=== PATIENT | male | born 1955 | race Caucasian/White ===

== ENCOUNTER 2021-10-20 14:37 | Inpatient (IN) ==
--- NOTE | 2021-10-20 14:54 | Emergency Department Note ---
Impression & Plan Acute left-sided weakness, Anemia ED Provider Note NAME: FREDDY LIU AGE: 66 SEX: M : 1955 ARRIVES VIA: Walk-In INFORMANT: Patient, the patient's family member ED PROVIDER(S): Lisandro Little DO CHIEF COMPLAINT: Stroke alert HPI: The patient is a 66-year-old male who was made a stroke alert from triage who presented to the emergency department with left-sided heaviness. The patient presented to the emergency department with his family member. He states he was in our facility yesterday for a blood transfusion. He received a blood transfusion for anemia. He states he did well with that and was able to go patricia e. He states he felt less tired. He states today when he was getting ready to have his morning coffee around 830 he went to stand up and felt very dizzy. He fell to the ground. He states it was not a syncopal episode but he states it was more of a near syncopal episode. He did not strike his head. Ever since that episode he states he has been having left-sided weakness. The patient denies having any chest pain or difficulty breathing. The patient denies having any hip pain or back pain. The patient denies having any fevers. He is not been seen by his family doctor today. Patient also states that the left side of his face has tingling in it. ROS: See above HPI for pertinent positives & negatives. A total of 10 systems reviewed and were otherwise negative. PAST MEDICAL HISTORY: See Below PAST SURGICAL HISTORY: See Below FAMILY HISTORY: See Below SOCIAL HISTORY: See Below HOME MEDICATIONS: See Below ALLERGIES: See Below VITALS: See Below PHYSICAL EXAMINATION: GENERAL: Patient is awake alert in no acute distress patient is resting comfortably and showing no signs of anxiety EYES: The conjunctivae are clear. The pupils are round and reactive. EARS, NOSE, MOUTH AND THROAT: The nose is without any evidence of any deformity. Mucous membranes are moist. Tongue is midline. NECK: The neck is nontender and supple. RESPIRATORY: Normal respiratory effort is noted there is no evidence of wheezing rhonchi or rales CARDIOVASCULAR: Regular rate and rhythm noted there no murmurs rubs or gallops normal S1 normal S2. GASTROINTESTINAL: The abdomen is soft. Abdomen is nontender. MUSCULOSKELETAL/EXTREMITIES: There is no evidence of gross deformity full range of motion is noted in the hips and shoulders. SKIN: There is no obvious evidence of any rash. There are no petechiae, pallor or cyanosis noted. NEUROLOGIC: Patient is awake alert and oriented x3. There is no facial droop. 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 The patient is able to hold each leg off the bed for greater than 5 seconds but he does start to have some tremors in the left leg where the right leg he is able to hold without difficulty. MEDICAL DECISION MAKING: The patient is a 66-year-old male who presented to the emergency department through triage for left-sided weakness. The weakness began this morning. I nitially he was made a stroke alert but he was found to be outside the window for thrombolytics. The patient does not appear to have signs of large vessel occlusion on physical exam or by radiographic studies. I discussed the patient's laboratory and radiographic studies with him. He does have a history of metastatic prostate cancer. He does not have any back pain but he continues to have left-sided weakness especially in the leg greater than arm. The patient's condition was discussed with the on-call [facility] hospitalist group. They have agreed to evaluate the patient in the emergency department for further management and disposition. Likely patient may require further neuroimaging. Triage Nursing notes reviewed. Prior medical records reviewed Vital Signs: reviewed and remarkable for no significant abnormalities Differential diagnosis: Infection, dehydration, metabolic abnormality, hypo/hyperglycemia, electrolyte disturbance, anemia, hypoxia, cardiac sources, intracerebral event, toxicologic, neurologic, as well as other pathologies. ER treatment provided: See below Diagnostics interpreted by me: ECG: EKG was obtained in the emergency department. My interpretation is normal sinus rhythm at 79 bpm. First-degree AV block was noted. Nonspecific ST seg ment abnormalities were noted in the low lateral leads. No previous tracing was available. Cardiac Monitoring: An order was placed for continuous cardiac monitoring. The monitor shows a rate of 68 bpm with sinus rhythm. Laboratory studies: As stated above and show below. Imaging studies: See below Consultation(s): I discussed this case with the on-call [facility] hospitalist group. Past Med/Surg History Medical History (Updated 10/20/21 @ 21:41 by Lisandro Little DO) Anemia History of transcatheter aortic valve replacement (TAVR) HTN (hypertension) Prostate cancer metastatic to bone Surgical History History of heart valve replacement 2010 History of heart valve replacement 2018 History of heart valve replacement 2008 History of prostatectomy 2009 Family History Other Colorectal cancer Kidney disease Prostate cancer Social History Smoking Status: Never smoker Hx Alcohol Use: Yes Alcohol type: beer Hx Substance Use: No Preferred Language: Polish Communication Ability: Effective Visual Impairment: No Limitations Hearing Ability: Hard of Hearing 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 Beliefs That Will Affect Care: None Current Living Situation: Family Feels Safe at Home: Yes Allergies Allergies Allergy/AdvReac Type Severity Reaction Status Date / Time No Known Allergies Allergy Unverified 10/20/21 16:39 Home Meds Home Medications Medication Instructions Recorded Confirmed atenolol 25 mg tablet 25 mg PO DAILY 10/19/21 10/20/21 oxycodone-acetaminophen 10 mg-325 1 tab PO Q4H PRN 10/19/21 10/20/21 mg tablet (Percocet) aspirin 81 mg tablet,delayed 81 mg PO DAILY 10/20/21 10/20/21 release calcium carbonate 600 mg-vitamin 1 tab PO BID 10/20/21 10/20/21 D3 10 mcg (400 unit) tablet (Calcium 600 + D(3)) diclofenac sodium 1 % topical gel 2 g TOPICAL BID PRN 10/20/21 10/20/21 (Voltaren Arthritis Pain) methylphenidate HCl 10 mg tablet 10 mg PO DAILY 10/20/21 10/20/21 mirtazapine 30 mg tablet 15 mg PO HS 10/20/21 10/20/21 morphine 30 mg tablet,extended 30 mg PO BID 10/20/21 10/20/21 release naloxegol 25 mg tablet (Movantik) 25 mg PO DAILY 10/20/21 10/20/21 sennosides 8.6 mg tablet (Senokot) 8.6 mg PO DAILY 10/20/21 10/20/21 Results & Data (ED) Vital Signs Vital Signs - 24 hr 10/20/21 14:37 10/20/21 14:41 10/20/21 14:52 Temperature 36.5 C Temperature Source Temporal Artery Scan Pulse Rate 79 Pulse Rate [Apical] 72 Pulse Rate from SpO2 Sensor Respiratory Rate 18 16 Respiratory Effort / Characteristics Non-Labored Spontaneous Non-Labored Respiratory Depth Normal Normal Respiratory Pattern Regular Blood Pressure 122/79 Blood Pressure [Right Arm] 137/77 Blood Pressure Mean 93 Blood Pressure Mean [Right Arm] 97 Blood Pressure Position [Right Arm] Sitting Pulse Oximetry 97 96 95 Oxygen Delivery Method Room Air Room Air Room Air Sepsis Recent Fever Within 48 Hours No Sepsis New/Unexplained Change in Mental Status No Sepsis Action Taken by Nursing No Action Required 10/20/21 15:17 10/20/21 15:30 10/20/21 15:45 Temperature Temperature Source Pulse Rate 73 69 75 Pulse Rate [Apical] Pulse Rate from SpO2 Sensor Respiratory Rate 20 20 18 Respiratory Effort / Characteristics Respiratory Depth Respiratory Pattern Blood Pressure 137/77 124/70 131/78 Blood Pressure [Right Arm] Blood Pressure Mean 97 88 95 Blood Pressure Mean [Right Arm] Blood Pressure Position [Right Arm] Pulse Oximetry 96 99 97 Oxygen Delivery Method Room Air Room Air Room Air Sepsis Recent Fever Within 48 Hours Sepsis New/Unexplained Change in Mental Status Sepsis Action Taken by Nursing 10/20/21 16:00 10/20/21 16:39 10/20/21 17:57 Temperature Temperature Source Pulse Rate 70 Pulse Rate [Apical] 68 64 Pulse Rate from SpO2 Sensor 69 Respiratory Rate 17 16 16 Respiratory Effort / Characteristics Non-Labored Spontaneous Non-Labored Spontaneous Respiratory Depth Normal Normal Respiratory Pattern Regular Regular Blood Pressure 124/87 Blood Pressure [Right Arm] 112/64 114/63 Blood Pressure Mean 99 Blood Pressure Mean [Right Arm] 80 80 Blood Pressure Position [Right Arm] Lying Lying Pulse Oximetry 97 95 98 Oxygen Delivery Method Room Air Room Air Sepsis Recent Fever Within 48 Hours Sepsis New/Unexplained Change in Mental Status Sepsis Action Taken by Long-Term Medications Current Medication List: was personally reviewed by me Laboratory Data Attestation: I reviewed the patient's lab results. Result diagrams: 10/20/21 14:53 10/20/21 14:53 Lab Results 10/20/21 10/20/21 10/20/21 Range/Units 14:49 14:53 14:53 WBC 4.46 L (4.8-10.8) K/uL RBC 2.80 L (4.7-6.1) M/uL Hgb 8.1 L (14.0-18.0) g/dL POC Hgb (14.0-18.0) g/dl Hct 26.0 L (42-52) % POC Hct (42-52) % MCV 92.9 (80-100) fL MCH 28.9 (25-34) pg MCHC 31.2 L (32-36) g/dL RDW Std Deviation 66.7 H (36.4-46.3) fL RDW Coeff of Marysol 19.8 H (11.5-14.5) % Plt Count 200 (130-400) K/uL MPV 9.9 (7.4-10.4) fL Immature Gran % (Auto) 9.6 % Neut % (Auto) 55.9 % Lymph % (Auto) 16.4 % Arthur % (Auto) 15.0 % Eos % (Auto) 2.2 % Baso % (Auto) 0.9 % Neut # (Auto) 2.49 (1.4-6.5) K/uL Lymph # (Auto) 0.73 L (1.2-3.4) K/uL Arthur # (Auto) 0.67 H (0.11-0.59) K/uL Eos # (Auto) 0.10 (0-0.5) K/uL Baso # (Auto) 0.04 (0-0.2) K/uL Immature Gran # (Auto) 0.43 H (0.00-0.02) K/uL Absolute Nucleated RBC 0.29 H (0-0) K/uL Nucleated RBC % (auto) 6.4 % Polychromasia 1+ Anisocytosis Present Tear Drop Cells 1+ PT 12.0 (9.0-12.0) Seconds INR 1.1 (0.9-1.1) APTT 24.3 (21.0-31.0) Seconds PTT Ratio 0.9 POC Sodium (135-144) mmol/L Sodium (136-145) mmol/L POC Potassium (3.3-5.0) mmol/L Potassium (3.5-5.1) mmol/L POC Chloride (101-112) mmol/L Chloride (98-107) mmol/L Carbon Dioxide (21-32) mmol/L POC Total CO2 (24-31) mmol/L Anion Gap (3-11) POC Anion Gap (16-25) mmol/L POC BUN (7-18) mg/dl BUN (6-23) mg/dl Creatinine (0.6-1.4) mg/dl POC Creatinine (0.6-1.3) mg/dl Est Cr Clr Drug Dosing ml/min Est GFR ( Amer) ml/min Est GFR (Non-Af Amer) ml/min BUN/Creatinine Ratio (10-20) Glucose (70-99(Fasting)) mg/dl POC Glucose 109 H (70-99) mg/dl POC Glucose (other) (70-99) mg/dl Calcium (8.5-10.1) mg/dl POC Ioniz Calcium Kitty (1.12-1.32) mmol/l Magnesium (1.7-2.4) mg/dl Total Bilirubin (0.2-1.0) mg/dl AST (13-39) U/L ALT (7-52) U/L Alkaline Phosphatase (34-104) U/L Troponin I High Sens (0-20) pg/ml Total Protein (6.0-8.3) gm/dl Albumin (3.4-5.0) gm/dl Globulin (2.5-4.0) gm/dl Albumin/Globulin Ratio (0.9-2) SARS-CoV-2, RNA, NAAT (NEGATIVE) 10/20/21 10/20/21 10/20/21 Range/Units 14:53 14:57 16:01 WBC (4.8-10.8) K/uL RBC (4.7-6.1) M/uL Hgb (14.0-18.0) g/dL POC Hgb 8.2 L (14.0-18.0) g/dl Hct (42-52) % POC Hct 24 L (42-52) % MCV (80-100) fL MCH (25-34) pg MCHC (32-36) g/dL RDW Std Deviation (36.4-46.3) fL RDW Coeff of Marysol (11.5-14.5) % Plt Count (130-400) K/uL MPV (7.4-10.4) fL Immature Gran % (Auto) % Neut % (Auto) % Lymph % (Auto) % Arthur % (Auto) % Eos % (Auto) % Baso % (Auto) % Neut # (Auto) (1.4-6.5) K/uL Lymph # (Auto) (1.2-3.4) K/uL Arthur # (Auto) (0.11-0.59) K/uL Eos # (Auto) (0-0.5) K/uL Baso # (Auto) (0-0.2) K/uL Immature Gran # (Auto) (0.00-0.02) K/uL Absolute Nucleated RBC (0-0) K/uL Nucleated RBC % (auto) % Polychromasia Anisocytosis Tear Drop Cells PT (9.0-12.0) Seconds INR (0.9-1.1) APTT (21.0-31.0) Seconds PTT Ratio POC Sodium 138 (135-144) mmol/L Sodium 137 (136-145) mmol/L POC Potassium 4.3 (3.3-5.0) mmol/L Potassium 4.2 (3.5-5.1) mmol/L POC Chloride 105 (101-112) mmol/L Chloride 104 (98-107) mmol/L Carbon Dioxide 26 (21-32) mmol/L POC Total CO2 22 L (24-31) mmol/L Anion Gap 7 (3-11) POC Anion Gap 17.0 (16-25) mmol/L POC BUN 22 H (7-18) mg/dl BUN 25 H (6-23) mg/dl Creatinine 0.88 (0.6-1.4) mg/dl POC Creatinine 0.8 (0.6-1.3) mg/dl Est Cr Clr Drug Dosing 93.3 ml/min Est GFR ( Amer) 103.7 ml/min Est GFR (Non-Af Amer) 89.5 ml/min BUN/Creatinine Ratio 28.4 H (10-20) Glucose 109 H (70-99(Fasting)) mg/dl POC Glucose (70-99) mg/dl POC Glucose (other) 112 H (70-99) mg/dl Calcium 7.5 L (8.5-10.1) mg/dl POC Ioniz Calcium Kitty 0.98 L (1.12-1.32) mmol/l Magnesium 2.4 (1.7-2.4) mg/dl Total Bilirubin 0.5 (0.2-1.0) mg/dl AST 56 H (13-39) U/L ALT 7 (7-52) U/L Alkaline Phosphatase 460 H (34-104) U/L Troponin I High Sens 9.5 (0-20) pg/ml Total Protein 7.1 (6.0-8.3) gm/dl Albumin 4.3 (3.4-5.0) gm/dl Globulin 2.8 (2.5-4.0) gm/dl Albumin/Globulin Ratio 1.5 (0.9-2) SARS-CoV-2, RNA, NAAT NEGATIVE (NEGATIVE) Administered Medications Discontinued Medications Aspirin (Aspirin 81 Mg Chew) 324 mg PO NOW STA Stop: 10/20/21 18:37 Last Admin: 10/20/21 19:05 Dose: 324 mg Documented by: [id number] Calcium Gluconate 1,000 mg/ (Dextrose) 60 mls @ 240 mls/hr IV NOW ONE Stop: 10/20/21 20:12 Last Infusion: 10/20/21 21:03 Dose: 0 mls/hr Documented by: [id number] Admin: 10/20/21 20:44 Dose: 240 mls/hr Documented by: [id number] Ioversol (Optiray 320 125ml) 120 ml IV ONCE ONE Stop: 10/20/21 15:09 Last Admin: 10/20/21 15:08 Dose: 120 ml Documented by: [id number] Imaging Data Radiologist's Impression: Chest X-Ray 10/20/21 14:52 XR chest 1V portable HISTORY: 66 years-old Male Stroke Like Symptoms acute strokelike symptoms COMPARISON: CT head and cervical spine studies of same day TECHNIQUE: AP view of the chest FINDINGS: The cardiac silhouette is enlarged. Prior median sternotomy. No pneumothorax, pleural effusion, airspace consolidation or overt pulmonary edema. Extensive osteoblastic skeletal metastasis. Degenerative changes of the shoulders and spine. IMPRESSION: 1. Cardiomegaly without acute process. 2. Extensive osteoblastic skeletal metastasis. ACT 112: Negative or not required by law. The above report was generated using voice recognition software. It may contain grammatical, syntax or spelling errors. Electronically signed by: Vitor Holt M.D. 10/20/2021 3:[address] 10/20/21 14:[address] OF THE BRAIN; CT ANGIOGRAM OF THE BRAIN; CT ANGIOGRAM OF THE NECK CLINICAL HISTORY: Strokelike symptoms. COMPARISON STUDY: No priors. TECHNIQUE: Unenhanced axial CT scan of the brain is performed. Subsequently, following the IV administration of 119 of Optiray 320, CT angiogram of the head and neck was performed from the aortic arch to the vertex. Images are reviewed in the axial, sagittal, and coronal planes. 3-D MIPS images are created and assessed. IV contrast was administered without complication. All measurements were calculated based on NASCET criteria. A dose lowering technique was utilized adhering to the principles of ALARA. FINDINGS: Brain parenchyma: A chronic lacunar infarct is noted in the left basal ganglia. There is no hemorrhage, mass effect, or evidence of acute territorial ischemia by CT criteria. There is no evidence of enhancing mass lesion on the angiogram phase images. The ventricles, sulci, and cisterns are normal in configuration. Megacisterna magna is incidentally noted. Pierce-white matter differentiation is preserved. No extra-axial fluid collection is seen. Thoracic aorta: Visualized portions of the thoracic aorta are normal in caliber. The aortic arch demonstrates standard 3-vessel anatomy. Right carotid arterial system: The right common carotid artery is widely patent, as are the right internal and external carotid arteries. Left carotid arterial system: The left common carotid artery is widely patent, as are the left internal and external carotid arteries. Atherosclerotic plaque is noted in the carotid bulb.. Vertebral arteries: Widely patent bilaterally and codominant. Subclavian arteries: Widely patent bilaterally. Intracranial vasculature: There is atherosclerotic calcification of the cavernous carotid arteries. The internal carotid arteries are patent at the skull base, as are the anterior and middle cerebral arteries bilaterally. The vertebrobasilar system and posterior cerebral arteries are widely patent. The vertebral arteries are codominant. There is no aneurysm, high-grade stenosis, or focal vessel cut off seen throughout the intracranial circulation. Jugular veins: Patent bilaterally. Dural sinuses: Patent. Lung apices: Partially visualized upper lobe lung parenchyma appears clear. Soft tissues: The visualized pharyngeal soft tissues are normal in appearance noting angiographic phase technique. The oropharyngeal airway appears widely patent. The salivary and thyroid glands are normal in appearance. No cervical lymphadenopathy is seen. Skeletal structures: The calvarium appears intact. The cervical spine is within normal limits. There is evidence of multifocal osteoblastic metastatic disease, greatest in the thoracic spine, upper ribs, and sternum. Midline sternotomy wires are noted. Orbits: The bony orbits are intact. Orbital contents are normal as visualized noting a right ocular lens implant. Sinuses and mastoids: There is mild mucosal thickening and retention cysts in the maxillary antra. Retention cysts measure up to 3 cm. Mild mucosal thickening is also seen within the sphenoid and ethmoid sinuses. There are trace mastoid effusions0. IMPRESSION: 1. There is no hemorrhage, mass effect, or evidence of acute territorial ischemia by CT criteria. 2. Unremarkable CT angiogram of the brain. 3. Unremarkable CT angiogram of the neck. 4. 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 Correlate with the patient's oncological history. ACT 112: Negative or not required by law. Electronically signed by: Leo Perry M.D. 10/20/2021 3:35 PM Head CTA 10/20/21 14:[address] OF THE BRAIN; CT ANGIOGRAM OF THE BRAIN; CT ANGIOGRAM OF THE NECK CLINICAL HISTORY: Strokelike symptoms. COMPARISON STUDY: No priors. TECHNIQUE: Unenhanced axial CT scan of the brain is performed. Subsequently, following the IV administration of 119 of Optiray 320, CT angiogram of the head and neck was performed from the aortic arch to the vertex. Images are reviewed in the axial, sagittal, and coronal planes. 3-D MIPS images are created and assessed. IV contrast was administered without complication. All measurements were calculated based on NASCET criteria. A dose lowering technique was utilized adhering to the principles of ALARA. FINDINGS: Brain parenchyma: A chronic lacunar infarct is noted in the left basal ganglia. There is no hemorrhage, mass effect, or evidence of acute territorial ischemia by CT criteria. There is no evidence of enhancing mass lesion on the angiogram phase images. The ventricles, sulci, and cisterns are normal in configuration. Megacisterna magna is incidentally noted. Pierce-white matter differentiation is preserved. No extra-axial fluid collection is seen. Thoracic aorta: Visualized portions of the thoracic aorta are normal in caliber. The aortic arch demonstrates standard 3-vessel anatomy. Right carotid arterial system: The right common carotid artery is widely patent, as are the right internal and external carotid arteries. Left carotid arterial system: The left common carotid artery is widely patent, as are the left internal and external carotid arteries. Atherosclerotic plaque is noted in the carotid bulb.. Vertebral arteries: Widely patent bilaterally and codominant. Subclavian arteries: Widely patent bilaterally. Intracranial vasculature: There is atherosclerotic calcification of the cavernous carotid arteries. The internal carotid arteries are patent at the skull base, as are the anterior and middle cerebral arteries bilaterally. The vertebrobasilar system and posterior cerebral arteries are widely patent. The vertebral arteries are codominant. There is no aneurysm, high-grade stenosis, or focal vessel cut off seen throughout the intracranial circulation. Jugular veins: Patent bilaterally. Dural sinuses: Patent. Lung apices: Partially visualized upper lobe lung parenchyma appears clear. Soft tissues: The visualized pharyngeal soft tissues are normal in appearance noting angiographic phase technique. The oropharyngeal airway appears widely patent. The salivary and thyroid glands are normal in appearance. No cervical lymphadenopathy is seen. Skeletal structures: The calvarium appears intact. The cervical spine is within normal limits. There is evidence of multifocal osteoblastic metastatic disease, greatest in the thoracic spine, upper ribs, and sternum. Midline sternotomy wires are noted. Orbits: The bony orbits are intact. Orbital contents are normal as visualized noting a right ocular lens implant. Sinuses and mastoids: There is mild mucosal thickening and retention cysts in the maxillary antra. Retention cysts measure up to 3 cm. Mild mucosal thickening is also seen within the sphenoid and ethmoid sinuses. There are trace mastoid effusions0. IMPRESSION: 1. There is no hemorrhage, mass effect, or evidence of acute territorial ischemia by CT criteria. 2. Unremarkable CT angiogram of the brain. 3. Unremarkable CT angiogram of the neck. 4. 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 Correlate with the patient's oncological history. ACT 112: Negative or not required by law. Electronically signed by: Leo Perry M.D. 10/20/2021 3:35 PM Neck CTA 10/20/21 14:[address] OF THE BRAIN; CT ANGIOGRAM OF THE BRAIN; CT ANGIOGRAM OF THE NECK CLINICAL HISTORY: Strokelike symptoms. COMPARISON STUDY: No priors. TECHNIQUE: Unenhanced axial CT scan of the brain is performed. Subsequently, following the IV administration of 119 of Optiray 320, CT angiogram of the head and neck was performed from the aortic arch to the vertex. Images are reviewed in the axial, sagittal, and coronal planes. 3-D MIPS images are created and assessed. IV contrast was administered without complication. All measurements were calculated based on NASCET criteria. A dose lowering technique was utilized adhering to the principles of ALARA. FINDINGS: Brain parenchyma: A chronic lacunar infarct is noted in the left basal ganglia. There is no hemorrhage, mass effect, or evidence of acute territorial ischemia by CT criteria. There is no evidence of enhancing mass lesion on the angiogram phase images. The ventricles, sulci, and cisterns are normal in configuration. Megacisterna magna is incidentally noted. Pierce-white matter differentiation is preserved. No extra-axial fluid collection is seen. Thoracic aorta: Visualized portions of the thoracic aorta are normal in caliber. The aortic arch demonstrates standard 3-vessel anatomy. Right carotid arterial system: The right common carotid artery is widely patent, as are the right internal and external carotid arteries. Left carotid arterial system: The left common carotid artery is widely patent, as are the left internal and external carotid arteries. Atherosclerotic plaque is noted in the carotid bulb.. Vertebral arteries: Widely patent bilaterally and codominant. Subclavian arteries: Widely patent bilaterally. Intracranial vasculature: There is atherosclerotic calcification of the cavernous carotid arteries. The internal carotid arteries are patent at the skull base, as are the anterior and middle cerebral arteries bilaterally. The vertebrobasilar system and posterior cerebral arteries are widely patent. The vertebral arteries are codominant. There is no aneurysm, high-grade stenosis, or focal vessel cut off seen throughout the intracranial circulation. Jugular veins: Patent bilaterally. Dural sinuses: Patent. Lung apices: Partially visualized upper lobe lung parenchyma appears clear. Soft tissues: The visualized pharyngeal soft tissues are normal in appearance noting angiographic phase technique. The oropharyngeal airway appears widely patent. The salivary and thyroid glands are normal in appearance. No cervical lymphadenopathy is seen. Skeletal structures: The calvarium appears intact. The cervical spine is within normal limits. There is evidence of multifocal osteoblastic metastatic disease, greatest in the thoracic spine, upper ribs, and sternum. Midline sternotomy wires are noted. Orbits: The bony orbits are intact. Orbital contents are normal as visualized noting a right ocular lens implant. Sinuses and mastoids: There is mild mucosal thickening and retention cysts in the maxillary antra. Retention cysts measure up to 3 cm. Mild mucosal thickening is also seen within the sphenoid and ethmoid sinuses. There are trace mastoid effusions0. IMPRESSION: 1. There is no hemorrhage, mass effect, or evidence of acute territorial ischemia by CT criteria. 2. Unremarkable CT angiogram of the brain. 3. Unremarkable CT angiogram of the neck. 4. 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 Correlate with the patient's oncological history. ACT 112: Negative or not required by law. Electronically signed by: Leo Perry M.D. 10/20/2021 3:[address] 10/20/21 14:54 CT cervical spine wo con CT DOSE: 1648.81 mGy.cm CLINICAL HISTORY: 66 years-old Male with fall. Acute strokelike symptoms with neck pain COMPARISON: CTA head and neck of same day TECHNIQUE: Multiple axial CT images of the cervical spine were obtained without contrast. A dose lowering technique was utilized adhering to the principles of ALARA. FINDINGS: Multifocal osseous metastatic disease throughout the imaged skeletal structures. No acute pathologic fracture is identified. Possible subacute or ch ronic nondisplaced pathologic fracture involving the medial aspect of the left first rib on image 565. Prior median sternotomy. No pneumothorax. Unremarkable soft tissues. Ca lcifications of the carotid bulbs. Megacisterna magna. Mucosal thickening of the sphenoid sinuses. No acute fracture or subluxation. Multilevel neural foraminal narrowing. Small right mastoid effusion. IMPRESSION: 1. No acute cervical spine fracture or subluxation. 2. Multifocal osteoblastic skeletal metastasis. Metastatic prostate carcinoma would be considered most likely. Oncologic workup is needed. ACT 112: Negative or not required by law. The above report was generated using voice recognition software. It may contain grammatical, syntax or spelling errors. Electronically signed by: Vitor Holt M.D. 10/20/2021 3:33 PM Discharge Plan Visit Data Chief Complaint: Stroke/CVA Symptoms Stated Complaint: REF BY , POSSIBLE STROKE ED Provider: Lisandro Little Discharge Problem: Acute left-sided weakness, Anemia Patient Disposition: Admitted As Inpatient Discharge Instructions Interventions: ED Discharge Assessment Last Done: 10/20/21 19:43
[2021-10-20] MEDS ORDERED: OPTIRAY 320 125ml IV ONE (15:08)
[2021-10-20 15:11] LABS: iSTAT Creatinine 0.8 mg/dl (0.6-1.3); iSTAT Hemoglobin 8.2 g/dl (14.0-18.0); iSTAT Ionized Calcium 0.98 mmol/l (1.12-1.32); iSTAT Potassium 4.3 mmol/L (3.3-5.0)
[2021-10-20 15:22] LABS: Hemoglobin 8.1 g/dL (14.0-18.0); Mean Corpuscular Hemoglobin 28.9 pg (25-34); Mean Corpuscular Hgb Conc 31.2 g/dL (32-36); Mean Corpuscular Volume 92.9 fL (80-100); Mean Platelet Volume 9.9 fL (7.4-10.4); Nucleated RBC # (auto) 0.29 K/uL (0-0); Nucleated RBC % (auto) 6.4 %; Platelet Count 200 K/uL (130-400); RDW Coefficient of Variation 19.8 % (11.5-14.5); RDW Standard Deviation 66.7 fL (36.4-46.3); White Blood Count 4.46 K/uL (4.8-10.8)
[2021-10-20 15:30] LABS: INR 1.1 (0.9-1.1); Partial Thromboplastin Ratio 0.9; Partial Thromboplastin Time 24.3 Seconds (21.0-31.0)
--- NOTE | 2021-10-20 15:35 | CT Scan Report ---
CT cervical spine wo con CT DOSE: 1648.81 mGy.cm CLINICAL HISTORY: 66 years-old Male with fall. Acute strokelike symptoms with neck pain COMPARISON: CTA head and neck of same day TECHNIQUE: Multiple axial CT images of the cervical spine were obtained without contrast. A dose low ering technique was utilized adhering to the principles of ALARA. FINDINGS: Multifocal osseous metastatic disease throughout the imaged skeletal structures. No acute p athologic fracture is identified. Possible subacute or chronic nondisplaced pathologic fracture invol ving the medial aspect of the left first rib on image 565. Prior median sternotomy. No pneumothorax. Unremarkable soft tissues. Calcifications of the carotid bu lbs. Megacisterna magna. Mucosal thickening of the sphenoid sinuses. No acute fracture or subluxation . Multilevel neural foraminal narrowing. Small right mastoid effusion. IMPRESSION: 1. No acute cervical spine fracture or subluxation. 2. Multifocal osteoblastic skeletal metastasis. Metastatic prostate carcinoma would be considered mos t likely. Oncologic workup is needed. ACT 112: Negative or not required by law. The above report was generated using voice recognition software. It may contain grammatical, syntax o r spelling errors. Electronically signed by: Vitor Holt M.D. 10/20/2021 3:33 PM
--- NOTE | 2021-10-20 15:37 | CT Scan Report ---
UNENHANCED CT OF THE BRAIN; CT ANGIOGRAM OF THE BRAIN; CT ANGIOGRAM OF THE NECK CLINICAL HISTORY: Strokelike symptoms. COMPARISON STUDY: No priors. TECHNIQUE: Unenhanced axial CT scan of the brain is performed. Subsequently, following the IV adminis tration of 119 of [address] [address], CT angiogram of the head and neck was performed from the aortic arch t o the vertex. Images are reviewed in the axial, sagittal, and coronal planes. 3-D MIPS images are cre ated and assessed. IV contrast was administered without complication. All measurements were calculate d based on NASCET criteria. A dose lowering technique was utilized adhering to the principles of ALA RA. FINDINGS: Brain parenchyma: A chronic lacunar infarct is noted in the left basal ganglia. There is no hemorrhag e, mass effect, or evidence of acute territorial ischemia by CT criteria. There is no evidence of enh ancing mass lesion on the angiogram phase images. The ventricles, sulci, and cisterns are normal in c onfiguration. Megacisterna magna is incidentally noted. Pierce-white matter differentiation is preserve d. No extra-axial fluid collection is seen. Thoracic aorta: Visualized portions of the thoracic aorta are normal in caliber. The aortic arch demo nstrates standard 3-vessel anatomy. Right carotid arterial system: The right common carotid artery is widely patent, as are the right int ernal and external carotid arteries. Left carotid arterial system: The left common carotid artery is widely patent, as are the left internet technology manager al and external carotid arteries. Atherosclerotic plaque is noted in the carotid bulb.. Vertebral arteries: Widely patent bilaterally and codominant. Subclavian arteries: Widely patent bilaterally. Intracranial vasculature: There is atherosclerotic calcification of the cavernous carotid arteries. T he internal carotid arteries are patent at the skull base, as are the anterior and middle cerebral ar teries bilaterally. The vertebrobasilar system and posterior cerebral arteries are widely patent. The vertebral arteries are codominant. There is no aneurysm, high-grade stenosis, or focal vessel cut of f seen throughout the intracranial circulation. Jugular veins: Patent bilaterally. Dural sinuses: Patent. Lung apices: Partially visualized upper lobe lung parenchyma appears clear. Soft tissues: The visualized pharyngeal soft tissues are normal in appearance noting angiographic pha se technique. The oropharyngeal airway appears widely patent. The salivary and thyroid glands are nor mal in appearance. No cervical lymphadenopathy is seen. Skeletal structures: The calvarium appears intact. The cervical spine is within normal limits. There is evidence of multifocal osteoblastic metastatic disease, greatest in the thoracic spine, upper ribs , and sternum. Midline sternotomy wires are noted. Orbits: The bony orbits are intact. Orbital contents are normal as visualized noting a right ocular l ens implant. Sinuses and mastoids: There is mild mucosal thickening and retention cysts in the maxillary antra. Re tention cysts measure up to 3 cm. Mild mucosal thickening is also seen within the sphenoid and ethmoi d sinuses. There are trace mastoid effusions0. IMPRESSION: 1. There is no hemorrhage, mass effect, or evidence of acute territorial ischemia by CT criteria. 2. Unremarkable CT angiogram of the brain. 3. Unremarkable CT angiogram of the neck. 4. 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 Correlate with the patient 's oncological history. ACT 112: Negative or not required by law. Electronically signed by: Leo Perry M.D. 10/20/2021 3:35 PM
--- NOTE | 2021-10-20 15:48 | XRay Report ---
XR chest 1V portable HISTORY: 66 years-old Male Stroke Like Symptoms acute strokelike symptoms COMPARISON: CT head and cervical spine studies of same day TECHNIQUE: AP view of the chest FINDINGS: The cardiac silhouette is enlarged. Prior median sternotomy. No pneumothorax, pleural effusion, airsp donny consolidation or overt pulmonary edema. Extensive osteoblastic skeletal metastasis. Degenerative changes of the shoulders and spine. IMPRESSION: 1. Cardiomegaly without acute process. 2. Extensive osteoblastic skeletal metastasis. ACT 112: Negative or not required by law. The above report was generated using voice recognition software. It may contain grammatical, syntax o r spelling errors. Electronically signed by: Vitor Holt M.D. 10/20/2021 3:46 PM
[2021-10-20 15:54] LABS: Albumin Globulin Ratio 1.5 (0.9-2); Albumin Level 4.3 gm/dl (3.4-5.0); BUN Creatinine Ratio 28.4 (10-20); Bilirubin,Total 0.5 mg/dl (0.2-1.0); Calcium 7.5 mg/dl (8.5-10.1); Creatinine Clr Calc Pharmacy 93.3 ml/min; Est GFR (African American) 103.7 ml/min; Est GFR (Non-African American) 89.5 ml/min; Globulin 2.8 gm/dl (2.5-4.0); Magnesium 2.4 mg/dl (1.7-2.4); Potassium 4.2 mmol/L (3.5-5.1); Total Protein 7.1 gm/dl (6.0-8.3)
[2021-10-20 16:04] LABS: Anisocytosis Present; Basophils # (auto) 0.04 K/uL (0-0.2); Basophils % (auto) 0.9 %; Eosinophils % (auto) 2.2 %; Immature Granulocytes # (auto) 0.43 K/uL (0.00-0.02); Immature Granulocytes % (auto) 9.6 %; Lymphocytes # (auto) 0.73 K/uL (1.2-3.4); Lymphocytes % (auto) 16.4 %; Monocytes # (auto) 0.67 K/uL (0.11-0.59); Neutrophils # (auto) 2.49 K/uL (1.4-6.5); Neutrophils % (auto) 55.9 %; Polychromasia 1+; Tear Drop Cells 1+
[2021-10-20 16:10] LABS: Troponin I High Sensitivity 9.5 pg/ml (0-20)
--- NOTE | 2021-10-20 17:02 | Electrocardiogram Report ---
Test Reason : Blood Pressure : / mmHG Vent. Rate : 079 BPM Atrial Rate : 079 BPM P-R Int : 218 ms QRS Dur : 096 ms QT Int : 390 ms P-R-T Axes : -13 025 047 degrees QTc Int : 447 ms Sinus rhythm with 1st degree A-V block Abnormal ECG No previous ECGs available Confirmed by Jason Campbell ([id number]) on 10/20/2021 5:02:49 PM Referred By: REFERRED SELF Confirmed By:Jason Campbell
--- NOTE | 2021-10-20 18:28 | History & Physical Report ---
Date of Service October 20, 2021 Assessment & Plan (1) Left-sided weakness: Plan: Patient is 66 y/o M with PMH metastatic prostate cancer to bone, H/O TAVR, HTN, presented to ER with c/o left sided arm, leg weakness today started around 8:00am. Dizzy this am with fall, denies LOC. In ER vitals stable CT Head no acute findings CTA Head and neck: No hemorrhage, mass effect, or evidence of acute territorial ischemia by CT criteria. Unremarkable CT angiogram of the brain. Unremarkable CT angiogram of the neck. There is evidence of extensive/diffuse osteoblastic metastatic disease DDX: TIA, CVA, brain metastasis In ER with some improvement of left arm and left leg weakness Tele to monitor for arrhythmias A1c, lipid panel in am MRI brain Echo PT/OT consult Start statin Continue aspirin Neurology consult (2) Hypocalcemia: Plan: calcium: 7.5. POC ionized calcium: 0.98 Replace and monitor (3) Prostate cancer: Plan: Metastatic prostate cancer to bone. Lupron, Xgeva Continue home morphine, oxycodone and bowel regimen (4) Anemia: Plan: Chronic anemia. Baseline Hgb: ~8 Had PRBC transfusion 10/19/21 Hgb: 8.1 Monitor (5) HTN (hypertension): Plan: Continue atenolol DVT Prophylaxis Lovenox SQ DNR/DNI as per discussion with pt Follows with Dr Meza for routine care Pt was seen and care coordinated with Dr Lauren. See addendum History of Present Illness Chief Complaint: Fall, weakness Primary Care Provider: Lenny Meza, Patient is 66 y/o M with PMH metastatic prostate cancer to bone, H/O TAVR, HTN, presented to ER with c/o left sided weakness today. Reports this morning felt dizzy and fell to ground today, hitting back of head. Denies LOC. Reports left leg, left arm weakness around 8am today. Left side of face felt "different". He crawled to chair to get up. Daughter in law came home around 11:00am and he was still having left sided weakness but felt like wasn't as weak as initially. Vomited once around 12:30pm after eating yogurt. Denies abdominal pain. He feels left arm and left leg are less weak throughout the day. He states at baseline has generalized weakness but not the increased left sided weakness that he is experiencing today. History anemia and had PRBC transfusion yesterday. Is following with palliative medicine for cancer related pain. Denies fever/chills, diaphoresis, diarrhea, constipation, HUNTER, syncope, vision changes, neck pain, CP, SOB, orthopnea, palpitations, cough, sore throat, choking, otalgia, rhinorrhea, paresthesias, extremity edema, rashes, urinary symptoms. Allergies Allergy/AdvReac Type Severity Reaction Status Date / Time No Known Allergies Allergy Unverified 10/20/21 16:39 Home Medications Medication Instructions Recorded Confirmed Type atenolol 25 mg tablet 25 mg PO DAILY 10/19/21 10/20/21 History oxycodone-acetaminophen 10 mg-325 1 tab PO Q4H PRN 10/19/21 10/20/21 History mg tablet (Percocet) aspirin 81 mg tablet,delayed 81 mg PO DAILY 10/20/21 10/20/21 History release calcium carbonate 600 mg-vitamin 1 tab PO BID 10/20/21 10/20/21 History D3 10 mcg (400 unit) tablet (Calcium 600 + D(3)) diclofenac sodium 1 % topical gel 2 g TOPICAL BID PRN 10/20/21 10/20/21 History (Voltaren Arthritis Pain) methylphenidate HCl 10 mg tablet 10 mg PO DAILY 10/20/21 10/20/21 History mirtazapine 30 mg tablet 15 mg PO HS 10/20/21 10/20/21 History morphine 30 mg tablet,extended 30 mg PO BID 10/20/21 10/20/21 History release naloxegol 25 mg tablet (Movantik) 25 mg PO DAILY 10/20/21 10/20/21 History sennosides 8.6 mg tablet (Senokot) 8.6 mg PO DAILY 10/20/21 10/20/21 History Past Med/Surg History Medical History (Updated 10/20/21 @ 21:41 by Lisandro Little DO) Anemia History of transcatheter aortic valve replacement (TAVR) HTN (hypertension) Prostate cancer metastatic to bone Surgical History History of heart valve replacement 2009 History of heart valve replacement 2018 History of heart valve replacement 2008 History of prostatectomy 2009 Family History Other Colorectal cancer Kidney disease Prostate cancer Social History Smoking Status: Never smoker Hx Alcohol Use: Yes Alcohol type: beer Hx Substance Use: No Preferred Language: British Communication Ability: Effective Visual Impairment: No Limitations Hearing Ability: Hard of Hearing Manager Wellness Required: No Beliefs That Will Affect Care: None Current Living Situation: Family Feels Safe at Home: Yes Review of Systems Review of Systems: All systems reviewed & are unremarkable except as noted in HPI & below Physical Exam Physical Exam: PE per Dr Lauren Results & Data Results & Data ([facility]) Vital Signs (Past 12 Hours) Vital Signs Temp Pulse Pulse Resp BP BP Pulse Ox 10/20/21 17:57 64 16 114/63 98 10/20/21 16:39 68 16 112/64 95 10/20/21 16:00 70 17 124/87 97 10/20/21 15:45 75 18 131/78 97 10/20/21 15:30 69 20 124/70 99 10/20/21 15:17 73 20 137/77 96 10/20/21 14:52 95 10/20/21 14:41 36.5 C 79 16 122/79 96 10/20/21 14:37 72 18 137/77 97 Laboratory Results Short CBC 10/20/21 Range/Units 14:53 WBC 4.46 L (4.8-10.8) K/uL Hgb 8.1 L (14.0-18.0) g/dL Hct 26.0 L (42-52) % Plt Count 200 (130-400) K/uL BMP 10/20/21 14:53 Sodium 137 Potassium 4.2 Chloride 104 Carbon Dioxide 26 BUN 25 H Creatinine 0.88 Glucose 109 H Calcium 7.5 L Liver Function 10/20/21 Range/Units 14:53 Total Bilirubin 0.5 (0.2-1.0) mg/dl AST 56 H (13-39) U/L ALT 7 (7-52) U/L Alkaline Phosphatase 460 H (34-104) U/L Albumin 4.3 (3.4-5.0) gm/dl Diagnostic Findings Chest X-Ray 10/20/21 14:52 XR chest 1V portable HISTORY: 66 years-old Male Stroke Like Symptoms acute strokelike symptoms COMPARISON: CT head and cervical spine studies of same day TECHNIQUE: AP view of the chest FINDINGS: The cardiac silhouette is enlarged. Prior median sternotomy. No pneumothorax, pleural effusion, airspace consolidation or overt pulmonary edema. Extensive osteoblastic skeletal metastasis. Degenerative changes of the shoulders and spine. IMPRESSION: 1. Cardiomegaly without acute process. 2. Extensive osteoblastic skeletal metastasis. ACT 112: Negative or not required by law. The above report was generated using voice recognition software. It may contain grammatical, syntax or spelling errors. Electronically signed by: Vitor Holt M.D. 10/20/2021 3:[address] 10/20/21 14:[address] OF THE BRAIN; CT ANGIOGRAM OF THE BRAIN; CT ANGIOGRAM OF THE NECK CLINICAL HISTORY: Strokelike symptoms. COMPARISON STUDY: No priors. TECHNIQUE: Unenhanced axial CT scan of the brain is performed. Subsequently, following the IV administration of 119 of Optiray 320, CT angiogram of the head and neck was performed from the aortic arch to the vertex. Images are reviewed in the axial, sagittal, and coronal planes. 3-D MIPS images are created and assessed. IV contrast was administered without complication. All measurements were calculated based on NASCET criteria. A dose lowering technique was utilized adhering to the principles of ALARA. FINDINGS: Brain parenchyma: A chronic lacunar infarct is noted in the left basal ganglia. There is no hemorrhage, mass effect, or evidence of acute territorial ischemia by CT criteria. There is no evidence of enhancing mass lesion on the angiogram phase images. The ventricles, sulci, and cisterns are normal in configuration. Megacisterna magna is incidentally noted. Pierce-white matter differentiation is preserved. No extra-axial fluid collection is seen. Thoracic aorta: Visualized portions of the thoracic aorta are normal in caliber. The aortic arch demonstrates standard 3-vessel anatomy. Right carotid arterial system: The right common carotid artery is widely patent, as are the right internal and external carotid arteries. Left carotid arterial system: The left common carotid artery is widely patent, as are the left internal and external carotid arteries. Atherosclerotic plaque is noted in the carotid bulb.. Vertebral arteries: Widely patent bilaterally and codominant. Subclavian arteries: Widely patent bilaterally. Intracranial vasculature: There is atherosclerotic calcification of the cavernous carotid arteries. The internal carotid arteries are patent at the skull base, as are the anterior and middle cerebral arteries bilaterally. The vertebrobasilar system and posterior cerebral arteries are widely patent. The vertebral arteries are codominant. There is no aneurysm, high-grade stenosis, or focal vessel cut off seen throughout the intracranial circulation. Jugular veins: Patent bilaterally. Dural sinuses: Patent. Lung apices: Partially visualized upper lobe lung parenchyma appears clear. Soft tissues: The visualized pharyngeal soft tissues are normal in appearance noting angiographic phase technique. The oropharyngeal airway appears widely patent. The salivary and thyroid glands are normal in appearance. No cervical lymphadenopathy is seen. Skeletal structures: The calvarium appears intact. The cervical spine is within normal limits. There is evidence of multifocal osteoblastic metastatic disease, greatest in the thoracic spine, upper ribs, and sternum. Midline sternotomy wires are noted. Orbits: The bony orbits are intact. Orbital contents are normal as visualized noting a right ocular lens implant. Sinuses and mastoids: There is mild mucosal thickening and retention cysts in the maxillary antra. Retention cysts measure up to 3 cm. Mild mucosal thickening is also seen within the sphenoid and ethmoid sinuses. There are trace mastoid effusions0. IMPRESSION: 1. There is no hemorrhage, mass effect, or evidence of acute territorial ischemia by CT criteria. 2. Unremarkable CT angiogram of the brain. 3. Unremarkable CT angiogram of the neck. 4. 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 Correlate with the patient's oncological history. ACT 112: Negative or not required by law. Electronically signed by: Leo Perry M.D. 10/20/2021 3:35 PM Head CTA 10/20/21 14:[address] OF THE BRAIN; CT ANGIOGRAM OF THE BRAIN; CT ANGIOGRAM OF THE NECK CLINICAL HISTORY: Strokelike symptoms. COMPARISON STUDY: No priors. TECHNIQUE: Unenhanced axial CT scan of the brain is performed. Subsequently, following the IV administration of 119 of Optiray 320, CT angiogram of the head and neck was performed from the aortic arch to the vertex. Images are reviewed in the axial, sagittal, and coronal planes. 3-D MIPS images are created and assessed. IV contrast was administered without complication. All measurements were calculated based on NASCET criteria. A dose lowering technique was utilized adhering to the principles of ALARA. FINDINGS: Brain parenchyma: A chronic lacunar infarct is noted in the left basal ganglia. There is no hemorrhage, mass effect, or evidence of acute territorial ischemia by CT criteria. There is no evidence of enhancing mass lesion on the angiogram phase images. The ventricles, sulci, and cisterns are normal in configuration. Megacisterna magna is incidentally noted. Pierce-white matter differentiation is preserved. No extra-axial fluid collection is seen. Thoracic aorta: Visualized portions of the thoracic aorta are normal in caliber. The aortic arch demonstrates standard 3-vessel anatomy. Right carotid arterial system: The right common carotid artery is widely patent, as are the right internal and external carotid arteries. Left carotid arterial system: The left common carotid artery is widely patent, as are the left internal and external carotid arteries. Atherosclerotic plaque is noted in the carotid bulb.. Vertebral arteries: Widely patent bilaterally and codominant. Subclavian arteries: Widely patent bilaterally. Intracranial vasculature: There is atherosclerotic calcification of the cavernous carotid arteries. The internal carotid arteries are patent at the s kull base, as are the anterior and middle cerebral arteries bilaterally. The vertebrobasilar system and posterior cerebral arteries are widely patent. The vertebral arteries are codominant. There is no aneurysm, high-grade stenosis, or focal vessel cut off seen throughout the intracranial circulation. Jugular veins: Patent bilaterally. Dural sinuses: Patent. Lung apices: Partially visualized upper lobe lung parenchyma appears clear. Soft tissues: The visualized pharyngeal soft tissues are normal in appearance noting angiographic phase technique. The oropharyngeal airway appears widely patent. The salivary and thyroid glands are normal in appearance. No cervical lymphadenopathy is seen. Skeletal structures: The calvarium appears intact. The cervical spine is within normal limits. There is evidence of multifocal osteoblastic metastatic disease, greatest in the thoracic spine, upper ribs, and sternum. Midline sternotomy wires are noted. Orbits: The bony orbits are intact. Orbital contents are normal as visualized noting a right ocular lens implant. Sinuses and mastoids: There is mild mucosal thickening and retention cysts in the maxillary antra. Retention cysts measure up to 3 cm. Mild mucosal thickening is also seen within the sphenoid and ethmoid sinuses. There are trace mastoid effusions0. IMPRESSION: 1. There is no hemorrhage, mass effect, or evidence of acute territorial ischemia by CT criteria. 2. Unremarkable CT angiogram of the brain. 3. Unremarkable CT angiogram of the neck. 4. 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 Correlate with the patient's oncological history. ACT 112: Negative or not required by law. Electronically signed by: Leo Perry M.D. 10/20/2021 3:35 PM Neck CTA 10/20/21 14:[address] OF THE BRAIN; CT ANGIOGRAM OF THE BRAIN; CT ANGIOGRAM OF THE NECK CLINICAL HISTORY: Strokelike symptoms. COMPARISON STUDY: No priors. TECHNIQUE: Unenhanced axial CT scan of the brain is performed. Subsequently, following the IV administration of 119 of Optiray 320, CT angiogram of the head and neck was performed from the aortic arch to the vertex. Images are reviewed in the axial, sagittal, and coronal planes. 3-D MIPS images are created and assessed. IV contrast was administered without complication. All measurements were calculated based on NASCET criteria. A dose lowering technique was utilized adhering to the principles of ALARA. FINDINGS: Brain parenchyma: A chronic lacunar infarct is noted in the left basal ganglia. There is no hemorrhage, mass effect, or evidence of acute territorial ischemia by CT criteria. There is no evidence of enhancing mass lesion on the angiogram phase images. The ventricles, sulci, and cisterns are normal in configuration. Megacisterna magna is incidentally noted. Pierce-white matter differentiation is preserved. No extra-axial fluid collection is seen. Thoracic aorta: Visualized portions of the thoracic aorta are normal in caliber. The aortic arch demonstrates standard 3-vessel anatomy. Right carotid arterial system: The right common carotid artery is widely patent, as are the right internal and external carotid arteries. Left carotid arterial system: The left common carotid artery is widely patent, as are the left internal and external carotid arteries. Atherosclerotic plaque is noted in the carotid bulb.. Vertebral arteries: Widely patent bilaterally and codominant. Subclavian arteries: Widely patent bilaterally. Intracranial vasculature: There is atherosclerotic calcification of the cavernous carotid arteries. The internal carotid arteries are patent at the skull base, as are the anterior and middle cerebral arteries bilaterally. The vertebrobasilar system and posterior cerebral arteries are widely patent. The vertebral arteries are codominant. There is no aneurysm, high-grade stenosis, or focal vessel cut off seen throughout the intracranial circulation. Jugular veins: Patent bilaterally. Dural sinuses: Patent. Lung apices: Partially visualized upper lobe lung parenchyma appears clear. Soft tissues: The visualized pharyngeal soft tissues are normal in appearance noting angiographic phase technique. The oropharyngeal airway appears widely patent. The salivary and thyroid glands are normal in appearance. No cervical lymphadenopathy is seen. Skeletal structures: The calvarium appears intact. The cervical spine is within normal limits. There is evidence of multifocal osteoblastic metastatic disease, greatest in the thoracic spine, upper ribs, and sternum. Midline sternotomy wires are noted. Orbits: The bony orbits are intact. Orbital contents are normal as visualized noting a right ocular lens implant. Sinuses and mastoids: There is mild mucosal thickening and retention cysts in the maxillary antra. Retention cysts measure up to 3 cm. Mild mucosal thickening is also seen within the sphenoid and ethmoid sinuses. There are trace mastoid effusions0. IMPRESSION: 1. There is no hemorrhage, mass effect, or evidence of acute territorial ischemia by CT criteria. 2. Unremarkable CT angiogram of the brain. 3. Unremarkable CT angiogram of the neck. 4. 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 Correlate with the patient's oncological history. ACT 112: Negative or not required by law. Electronically signed by: Leo Perry M.D. 10/20/2021 3:[address] 10/20/21 14:54 CT cervical spine wo con CT DOSE: 1648.81 mGy.cm CLINICAL HISTORY: 66 years-old Male with fall. Acute strokelike symptoms with neck pain COMPARISON: CTA head and neck of same day TECHNIQUE: Multiple axial CT images of the cervical spine were obtained without contrast. A dose lowering technique was utilized adhering to the principles of ALARA. FINDINGS: Multifocal osseous metastatic disease throughout the imaged skeletal structures. No acute pathologic fracture is identified. Possible subacute or chronic nondisplaced pathologic fracture involving the medial aspect of the left first rib on image 565. Prior median sternotomy. No pneumothorax. Unremarkable soft tissues. Calcifications of the carotid bulbs. Megacisterna magna. Mucosal thickening of the sphenoid sinuses. No acute fracture or subluxation. Multilevel neural foraminal narrowing. Small right mastoid effusion. IMPRESSION: 1. No acute cervical spine fracture or subluxation. 2. Multifocal osteoblastic skeletal metastasis. Metastatic prostate carcinoma would be considered most likely. Oncologic workup is needed. ACT 112: Negative or not required by law. The above report was generated using voice recognition software. It may contain grammatical, syntax or spelling errors. Electronically signed by: Vitor Holt M.D. 10/20/2021 3:33 PM Supervising Physician Co-Signing Physician Notes Date of Service: October 20, 2021 History and physical exam performed by me. History notable for 66-year-old man with history of metastatic prostate cancer who presents with fall and left-sided weakness. Patient reported that he was feeling all right and till about 8 AM today when he fell while going to make coffee and has been having left-sided weakness. [Left arm and leg weakness left side of face feeling different]. Denies loss of consciousness or hitting his head. He was able to crawl to the chair until family came around noon. He contacted his family dr and was advised to go to ER. At the time of evaluation, patient reports left-sided weakness is improving. On exam, General: No distress Eyes: PERRL, conjunctivae normal, not pale, anicteric sclerae, EOM intact bilaterally ENMT: External ear and nose normal, oropharynx normal Respiratory: Normal respiratory effort, no respiratory distress, lungs clear to auscultation, no crackles and no wheezes Cardiovascular: RRR, S1 S2 +click Gastrointestinal (Abdomen): Abdomen is not distended, soft, non-tender to palpation, no guarding, no palpable hepatosplenomegaly, normal bowel sounds Musculoskeletal: No pedal edema Genitourinary: No CVA tenderness Neurologic: Alert and oriented x 3, No facial deviation. No pronator drift but left UE was tremulous towards the end of exam. Power was 5/5 in both UE and RLE, 4+ in LLE. No sensory deficits. CN II, III, IV, , V, VII, VIII, X, XI,XII grossly intact Psychiatric: Euthymic affect Labs notable for WBC of 4.46 thousand, hemoglobin of 8.1, ionized calcium of 0.98. Cervical CT did not show any cervical spine fracture or subluxation but showed multifocal osteoblastic skeletal metastasis. CT head did not show any acute hemorrhage or infarct. CT angio brain and neck was unremarkable Fall Left sided weakness Possible CVA Give ASA load Considering metastatic prostate ca, metastatic lesion is a possibility. Get MRI brain w/co Statin Neuro consult TTE PT/OT eval Agree with other plans as detailed by Laura Beckford PA-C
[2021-10-20] MEDS ORDERED: ASPIRIN 81 MG CHEW PO STA (18:36)
--- NOTE | 2021-10-20 18:44 | Communication Note ---
Date of Service: October 20, 2021 History and physical exam performed by me. History notable for 66-year-old man with history of metastatic prostate cancer who presents with fall and left-sided weakness. Patient reported that he was feeling all right and till about 8 AM today when he fell while going to make coffee and has been having left-sided weakness. [Left arm and leg weakness left side of face feeling different]. Denies loss of consciousness or hitting his head. He was able to crawl to the chair until family came around noon. He contacted his family dr and was advised to go to ER. At the time of evaluation, patient reports left-sided weakness is improved. On exam, General: No distress Eyes: PERRL, conjunctivae normal, not pale, anicteric sclerae, EOM intact bilaterally ENMT: External ear and nose normal, oropharynx normal Respiratory: Normal respiratory effort, no respiratory distress, lungs clear to auscultation, no crackles and no wheezes Cardiovascular: RRR, S1 S2 +click Gastrointestinal (Abdomen): Abdomen is not distended, soft, non-tender to palpation, no guarding, no palpable hepatosplenomegaly, normal bowel sounds Musculoskeletal: No pedal edema Genitourinary: No CVA tenderness Neurologic: Alert and oriented x 3, No facial deviation. No pronator drift but left UE was tremulous towards the end of exam. Power was 5/5 in both UE and RLE, 4+ in LLE. No sensory deficits. CN II, III, IV, , V, VII, VIII, X, XI,XII grossly intact Psychiatric: Euthymic affect Labs notable for WBC of 4.46 thousand, hemoglobin of 8.1, ionized calcium of 0.98. Cervical CT did not show any cervical spine fracture or subluxation but showed multifocal osteoblastic skeletal metastasis. CT head did not show any acute hemorrhage or infarct. CT angio brain and neck was unremarkable Fall Left sided weakness Possible CVA Give ASA load Considering metastatic prostate ca, metastatic lesion is a possibility. Get MRI brain w/co Statin Neuro consult TTE PT/OT eval Agree with other plans as detailed by Laura Beckford PA-C
[2021-10-20] MEDS ORDERED: CALCIUM GLUCONATE 10% 1,000 MG in DEXTROSE 5% 50 ML IV ONE (19:58)
[2021-10-20] MEDS ORDERED: DICLOFENAC SOD 1% GEL 100 GM TUBE EXT PRN (19:58)
[2021-10-20] MEDS ORDERED: ENOXAPARIN INJ 40 MG/0.4 ML SYR SQ SCH (19:58)
[2021-10-20] MEDS ORDERED: oxyCODONE/ACETAMINOPHEN 10-325 TAB PO PRN (19:58)
[2021-10-20] MEDS ORDERED: STAT IV STA (19:58)
[2021-10-20] MEDS ORDERED: POLYETHYLENE (MIRALAX) 17 GM PACK PO PRN (19:58)
[2021-10-20] MEDS ORDERED: ONDANSETRON INJ 2 MG/ML 2 ML VIAL IV PRN (19:58)
[2021-10-20] MEDS ORDERED: ACETAMINOPHEN 325 MG TAB PO PRN (19:58)
[2021-10-20] MEDS ORDERED: PHARMACIST DISCHARGE MED REC CONSULT PRN (19:58)
[2021-10-20] MEDS ORDERED: GADOBUTROL 65ML VIAL IV ONE (21:56)
[2021-10-20] MEDS: MoRPHine SULFATE CR 15 MG TABCR PO SCH (22:26)
[2021-10-20] MEDS: MIRTAZAPINE TAB 15 MG TAB PO SCH (22:26)
--- NOTE | 2021-10-21 00:32 | Communication Note ---
Date of Service: October 21, [address] Garibay (neurologist on-call ) to follow-up on brain MRI initial read. Brain MRI initial read: No abnormal enhancement, metastatic disease, acute infarct, bleed, or acute intracranial abnormality. Mild age-related findings. Mild motion artifact. MRI cervical spine as per Neurology recommendations.
--- NOTE | 2021-10-21 08:21 | Magnetic Resonance Report ---
CLINICAL HISTORY: L sided weakness TECHNIQUE: MRI of the cervical spine is performed utilizing various T1 and T2 sequences in the axial and sagittal planes. IV contrast was not administered for this examination. Comparison: None available at the time of this dictation. FINDINGS: Exam is limited by patient motion. Mottled appearance of the bone marrow is seen compatible with history of prostate cancer. No soft tis aidee mass is seen. C2-C3: Unremarkable. C3-C4: Facet arthropathy is seen with mild left neuroforaminal stenosis. C4-C5: Broad-based posterior disc bulge is seen. There is resulting moderate canal stenosis. There is severe right neural foraminal stenosis and moderate left neuroforaminal stenosis. C5-C6: Broad-based posterior disc bulge and facet arthropathy result in mild canal stenosis and mild bilateral neuroforaminal stenosis. C6-C7: Broad-based posterior disc bulge is seen. There is no significant canal stenosis but there is moderate left neural foraminal stenosis. C7-T1: Unremarkable. The spinal ligaments are intact, without evidence of disruption or abnormal signal intensity. The spi nal cord is normal in signal intensity and there is no evidence of cord contusion. There is no eviden ce of an extradural, intradural, extramedullary or intramedullary lesion. Visualized soft tissues are normal. Visualized brain parenchyma is normal. IMPRESSION: 1. Multilevel degenerative changes without to severe right and moderate left neural foraminal stenos is. Only mild canal stenosis is seen. No evidence of spinal cord edema. 2. Mottled appearance of the spinal cord which may represent posttreatment changes of metastatic [place] cancer, correlation with oncologic history is recommended. ACT 112: Negative or not required by law. Electronically signed by: Mikel Alexander M.D. 10/21/2021 8:20 AM
[2021-10-21 08:37] LABS: BUN Creatinine Ratio 27.4 (10-20); Calcium 6.9 mg/dl (8.5-10.1); Creatinine Clr Calc Pharmacy 97.8 ml/min; Est GFR (African American) 105.7 ml/min; Est GFR (Non-African American) 91.2 ml/min; Potassium 4.1 mmol/L (3.5-5.1)
[2021-10-21 08:40] LABS: Hemoglobin 6.9 g/dL (14.0-18.0); Mean Corpuscular Hemoglobin 29.1 pg (25-34); Mean Corpuscular Hgb Conc 31.4 g/dL (32-36); Mean Corpuscular Volume 92.8 fL (80-100); Mean Platelet Volume 10.4 fL (7.4-10.4); Nucleated RBC # (auto) 0.19 K/uL (0-0); Nucleated RBC % (auto) 7.2 %; Platelet Count 183 K/uL (130-400); RDW Coefficient of Variation 19.9 % (11.5-14.5); RDW Standard Deviation 66.4 fL (36.4-46.3); Red Blood Count 2.37 M/uL (4.7-6.1); White Blood Count 2.66 K/uL (4.8-10.8)
[2021-10-21 08:49] LABS: ALC (manual) 0.39 K/uL (1.2-3.4); ANC (manual) 1.73 K/uL (1.4-6.5); Anisocytosis Present; Basophils # (manual) 0.05 K/uL (0-0.2); Basophils % (manual) 1.7 %; Eosinophils # (manual) 0.07 K/uL (0-0.5); Eosinophils % (manual) 2.6 %; Lymphocytes # (manual) 0.39 K/uL (1.2-3.4); Lymphocytes % (manual) 14.8 %; Metamyelocytes # (manual) 0.02 K/uL (0-0); Metamyelocytes % (manual) 0.9 %; Monocytes # (manual) 0.23 K/uL (0.11-0.59); Monocytes % (manual) 8.7 %; Myelocytes # (manual) 0.16 K/uL (0-0); Myelocytes % (manual) 6.1 %; Neutrophils # (manual) 1.73 K/uL (1.4-6.5); Neutrophils % (manual) 65.2 %; Ovalocytes 1+
--- NOTE | 2021-10-21 08:50 | Magnetic Resonance Report ---
MR brain wo/w con CLINICAL HISTORY: left sided weakness, r/o stroke, h/o mets TECHNIQUE: Multiplanar and multisequence MR images of the brain were obtained prior to and following administration of gadolinium contrast. Comparison: None available at the time of this dictation. FINDINGS: No abnormal restricted diffusion is identified. The white matter is unremarkable. Ex vacuo ventriculo megaly and sulcal enlargement is noted compatible with diffuse encephalomalacia. No mass or abnormal enhancement is seen. There is no mass effect or midline shift. There is no evidence of acute intrapar enchymal hemorrhage. No extra axial fluid collections are seen. The corpus callosum, pituitary gland, and cerebellar tonsils appear grossly unremarkable. Prominent fluid collection in the almonte magnum is noted. Flow voids of the major intracranial arterial vessels are identified. The imaged portions of the para nasal sinuses, mastoid air cells, and orbits are unremarkable. Mottled appearance of the calvarium is seen in this patient with history of prostate cancer. IMPRESSION: No evidence of acute infarct or intracranial metastatic disease. Calvarial mottling is noted with enh ancement at the skull base. Correlation with oncologic history is recommended, bone scan can be perfo rmed if there is clinical concern. ACT 112: Negative or not required by law. Electronically signed by: Mikel Alexander M.D. 10/21/2021 8:48 AM
[2021-10-21] MEDS ORDERED: STAT IV STA (08:51)
[2021-10-21] MEDS: ASPIRIN 81 MG ECTAB PO SCH (08:57)
[2021-10-21] MEDS: ATENOLOL 25 MG TABLET PO SCH (08:58)
[2021-10-21] MEDS: ATORVASTATIN 40 MG TAB PO SCH (08:58)
[2021-10-21] MEDS: SENNA 8.6 MG TAB PO SCH (08:58)
[2021-10-21] MEDS: METHYLPHENIDATE HCL 10 MG TABLET PO SCH (08:59)
[2021-10-21] MEDS ORDERED: CALCIUM GLUCONATE 10% 1,000 MG in DEXTROSE 5% 50 ML IV ONE (09:00)
[2021-10-21 09:21] LABS: Estimated Average Glucose 117 mg/dl; Hemoglobin A1C 5.7 % (4.5-5.6)
[2021-10-21] MEDS: MoRPHine SULFATE CR 15 MG TABCR PO SCH ×2 (09:33→21:14)
[2021-10-21] MEDS ORDERED: SODIUM CHLORIDE 0.9% 250 ML IV PRN (10:56)
--- NOTE | 2021-10-21 12:11 | Consultation Report ---
DATE OF SERVICE: 10/21/2021 REASON FOR CONSULTATION: Episode of left face numbness, left arm and leg weakness. HISTORY OF PRESENT ILLNESS: This patient is a 66-year-old right-handed male with metastatic prostate cancer to bone, on hormonal therapy with Xgeva and Lupron, having failed chemotherapy. He has also had radium implants, I believe, in his pelvis. He has an additional history of a TAVR and hypertension. In the last several days, he was found to be more anemic than usual and I believe on , he had a blood transfusion. Yesterday morning while walking across the kitchen, he fell, which he believes was related to left leg weakness. He was able to get himself off the floor and sit down and felt he had numbness in the left face and weakness in the left arm and left leg. He sat in the chair for several hours until his son came home, and he felt that the weakness in the arm and leg have persisted and eventually came to our facility about 6 hours later still with some complaints, and on exam, physicians noted weakness in the left lower extremity. An MRI of the brain, which I have reviewed, shows no acute infarct or intracranial metastatic disease, calvarial mottling noted with enhancement of the skull base. Correlation with oncologic history is recommended. Bone scan could be performed if there is a clinical concern. CTA of the head and neck shows no hemorrhage. Unremarkable CTA of brain and neck. Evidence of diffuse osteoblastic metastatic disease. I had seen the report overnight and recommended to Dr. Perez to perform an MRI of the cervical spine. This was done noncontrast, as I believe he had received contrast recently to do a contrast study. I have reviewed that image and there is no cord compression. Mottled appearance, the radiologist read that mottled appearance of the spinal cord, which may represent post-treatment changes of metastatic prostate cancer. I am not sure that the cord itself is mottled rather than bone. We will confirm with radiology. Electrocardiogram was normal sinus rhythm with a first-degree AV block. H and H on admission .05/17, today 6./. White count today 2.66, nucleated RBCs, elevated lymphopenia. PT, PTT normal. Platelet count normal. BUN and creatinine ratio 28.4, hemoglobin A1c 5.7. Calcium on admission 7.5, on repeat 6.9 with a normal albumin, alkaline phosphatase 460, LDL 112. Continuing history, the patient has no history of transient ischemic attack or stroke. He has no family history of the same. He has no history of rheumatic fever or murmur. He has not recently been ill. None of his medicines are new or changed in dose. PAST SURGICAL HISTORY: TAVR and radiation to the lumbar spine in the spring for pain control. No neurologic deficit at that time. SOCIAL HISTORY: Nonsmoker, nondrinker. ALLERGIES: No allergies. HOME MEDICATIONS: Atenolol, oxycodone, aspirin, calcium carbonate, diclofenac topical gel, Ritalin, mirtazapine, morphine, Movantik and Senokot. REVIEW OF SYSTEMS: No incontinence of bowel or bladder. PHYSICAL EXAMINATION: The patient is awake and alert. Speech and language are normal. Affect appropriate. No carotid bruits are noted. No heart murmur is appreciable. Systolic murmur heard best over the aortic area. Abdomen is soft and nontender. No spinal tenderness is noted. No calf swelling is noted. Pulses are palpable in both feet. There may be a left ptosis. The pupils appear equal. Right optic nerve grossly normal. I had difficulty visualizing on the left secondary to cataract. There is normal facial sensation, facial symmetry. Speech is nondysarthric. Motor: There is normal bulk and tone. There is full strength in the upper and lower extremities. No drift. Normal rapid alternating movements. There are no pathologic reflexes. Ankle jerks are trace to absent. There is no clonus and toes are downgoing. Celnzm-kd-vniq and gspi-hz-agfl are normal. Gait is unremarkable for age. Sensation is intact to light touch, temperature and vibration. No trunk level to temperature is noted. IMPRESSION: This patient gives a history of 6 or more hours of weakness in the left leg greater than arm and numbness in the left face. Unusual that for a theoretic central event(TIA/STroke) to go on for that period of time and not show ischemia on MRI; however, I cannot explain it on another basis given his specific complaints. PLAN: Echocardiogram, rule out clot, valvular abnormality or vegetation. Consider blood cultures if clinically appropriate. The patient will need cardiac monitoring as an outpatient. Consider statin therapy with a goal LDL of 70 or less. Dual antiplatelet therapy with aspirin and Plavix for 3 weeks and then Plavix monotherapy. Often in the setting of advanced cancer and in the setting of stroke, oncology will recommend an anticoagulant. Given that no stroke was found, I defer to oncology regarding their decision as to whether or not the patient needs to be on an anticoagulant. The patient is hypocalcemic and this could contribute to generalized weakness, but not focal weakness. To complete his workup, I would recommend completing scan of the spine, doing a CT of the cervical spine with contrast and MRI of the thoracic and lumbosacral spine with and without contrast. The patient should see us in followup post discharge. Job ID: [id number] [facility] CENTERIvelisse
--- NOTE | 2021-10-21 15:08 | Hospitalist Progress Note ---
Date of Service October 21, 2021 Assessment & Plan (1) Left-sided weakness: Plan: Patient is a 66 yr male with H/O Metastatic prostate cancer to bone, H/O TAVR, HTN, presented to ER with c/o left sided arm, leg weakness today started around 8:00am. Dizzy this am with fall, denies LOC. Stroke like symptoms Possible TIA --MRI Brain:No evidence of acute infarct or intracranial metastatic disease. Calvarial mottling is noted with enhancement at the skull base. Correlation with oncologic history is recommended, bone scan can be performed if there is clinical concern. --Cervical MRI:Multilevel degenerative changes without to severe right and moderate left neural foraminal stenosis. Only mild canal stenosis is seen. No evidence of spinal cord edema. Mottled appearance of the spinal cord which may represent posttreatment changes of metastatic prostate cancer, correlation with oncologic history is recommended. --Head/Neck CTA:There is no hemorrhage, mass effect, or evidence of acute territorial ischemia by CT criteria. Unremarkable CT angiogram of the brain. Unremarkable CT angiogram of the neck. 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 Correlate with the patient's oncological history. Mottled appearance of the vertebral bodies is noted, the spinal cord is normal in appearance. --ECHO: Moderate concentric LVH. No regional wall motion abnormality. EF 55 to 60%. S/P transcatheter aortic valve. No significant prosthetic regurgitation present. Mild mitral regurgitation. Grade 2 diastolic dysfunction. The very small atrial ijvux-jz-hsts shunt was observed. There is a lesion does not allow assessment of patent foramen ovale. --LDL :112 --A1C: 5.7 Continue aspirin, Lipitor Started on Plavix 75 mg daily MRI lumbar, cervical, thoracic spine ordered to rule out other causes Appreciate Neurology Input Needs monitoring arranged as outpatient PT/OT (2) Hypocalcemia: Plan: Replace and monitor (3) Prostate cancer: Plan: Metastatic prostate cancer to bone. Lupron, Xgeva Continue home pain medications and bowel regimen (4) Anemia: Plan: Anemia of chronic disease Leukopenia Baseline Hgb: ~8 Had PRBC transfusion 10/19/21 Hgb: 6.9 today Monitor Will transfuse 1 unit PRBC (5) HTN (hypertension): Plan: Continue atenolol DVT Px: SCDs Re: Anemia Code Status DNR/DNI Admission and Anticipated Discharge Date Admission Date: October 20, 2021 Subjective Patient is seen and examined at bedside Dizziness, left-sided weakness, numbness resolved Hemoglobin dropped to 6.9 today Denies any chest pain, shortness of breath, abdominal pain, bleeding issues Offers no other complaints Review of Systems Review of Systems: All systems reviewed & are unremarkable except as noted in Subjective Physical Exam Physical Exam: Physical Exam: Vitals signs as noted above General Appearance:Moderately built and nourished, no apparent distress Head: normocephalic, Atraumatic Eyes: normal inspection, EOMI Neck: supple, Trachea midline Respiratory/Chest: Normal breath sounds, CTA, No accessory muscle use Cardiovascular: S1, S2, + Click, murmur Abdomen/GI:Soft, Non tender, Bowel sounds present Extremities/Musculoskeletal:normal inspection, no edema Neurologic/Psych:AAOX3, grossly no focal neurological deficits Skin: normal color, warm Results & Data Results & Data ([facility]) Vital Signs (Past 12 Hours) Vital Signs Temp Pulse Pulse Resp BP BP Pulse Ox 10/21/21 14:10 37.3 C 66 18 107/68 97 10/21/21 13:55 37.2 C 66 18 118/75 98 10/21/21 13:54 37.2 C 66 18 118/75 98 10/21/21 13:37 37.2 C 64 18 123/71 97 10/21/21 11:30 37.0 C 67 20 135/71 97 10/21/21 08:29 37.0 C 66 20 118/40 L 96 10/21/21 07:09 67 Laboratory Results Short CBC 10/20/21 10/21/21 Range/Units 14:53 07:34 WBC 4.46 L 2.66 L (4.8-10.8) K/uL Hgb 8.1 L 6.9 L* (14.0-18.0) g/dL Hct 26.0 L 22.0 L (42-52) % Plt Count 200 183 (130-400) K/uL BMP 10/20/21 10/21/21 14:53 07:34 Sodium 137 137 Potassium 4.2 4.1 Chloride 104 107 Carbon Dioxide 26 25 BUN 25 H 23 Creatinine 0.88 0.84 Glucose 109 H 89 Calcium 7.5 L 6.9 L Liver Function 10/20/21 Range/Units 14:53 Total Bilirubin 0.5 (0.2-1.0) mg/dl AST 56 H (13-39) U/L ALT 7 (7-52) U/L Alkaline Phosphatase 460 H (34-104) U/L Albumin 4.3 (3.4-5.0) gm/dl (1) Anemia Anemia type: unspecified type Qualified Code(s): D64.9 - Anemia, unspecified
[2021-10-21] MEDS: CLOPIDOGREL BISULFATE 75 MG TAB PO SCH (15:45)
[2021-10-21] MEDS: MIRTAZAPINE TAB 15 MG TAB PO SCH (21:12)
[2021-10-21 21:13] LABS: Hematocrit (blood only) 26.6 % (42-52); Hemoglobin 8.3 g/dL (14.0-18.0)
[2021-10-22 06:58] LABS: Calcium 7.2 mg/dl (8.5-10.1); Creatinine Clr Calc Pharmacy 100.1 ml/min; Est GFR (African American) 106.8 ml/min; Est GFR (Non-African American) 92.1 ml/min; Magnesium 2.2 mg/dl (1.7-2.4); Potassium 4.7 mmol/L (3.5-5.1)
[2021-10-22 07:06] LABS: Hematocrit (blood only) 26.8 % (42-52); Hemoglobin 8.4 g/dL (14.0-18.0); Mean Corpuscular Hemoglobin 28.4 pg (25-34); Mean Corpuscular Hgb Conc 31.3 g/dL (32-36); Mean Corpuscular Volume 90.5 fL (80-100); Mean Platelet Volume 9.9 fL (7.4-10.4); Nucleated RBC # (auto) 0.14 K/uL (0-0); Nucleated RBC % (auto) 5.2 %; Platelet Count 184 K/uL (130-400); RDW Coefficient of Variation 19.3 % (11.5-14.5); RDW Standard Deviation 63.1 fL (36.4-46.3); Red Blood Count 2.96 M/uL (4.7-6.1); White Blood Count 2.68 K/uL (4.8-10.8)
[2021-10-22] MEDS ORDERED: STAT IV STA (08:19)
[2021-10-22] MEDS ORDERED: CALCIUM GLUCONATE 10% 1,000 MG in DEXTROSE 5% 50 ML IV ONE (08:30)
[2021-10-22] MEDS: MoRPHine SULFATE CR 15 MG TABCR PO SCH (08:33)
[2021-10-22] MEDS: METHYLPHENIDATE HCL 10 MG TABLET PO SCH (08:33)
[2021-10-22] MEDS: ATENOLOL 25 MG TABLET PO SCH (08:34)
[2021-10-22] MEDS: ASPIRIN 81 MG ECTAB PO SCH (08:34)
[2021-10-22] MEDS: SENNA 8.6 MG TAB PO SCH (08:34)
[2021-10-22] MEDS: ATORVASTATIN 40 MG TAB PO SCH (08:34)
[2021-10-22] MEDS: CLOPIDOGREL BISULFATE 75 MG TAB PO SCH (08:34)
--- NOTE | 2021-10-22 10:48 | Magnetic Resonance Report ---
MRI OF THE CERVICAL SPINE WITHOUT CONTRAST CLINICAL HISTORY: Left-sided weakness status post fall. History of prostate and throat cancer. COMPARISON: CT of the cervical spine October 20, 2021. MRI of the cervical spine October 21, 2021. TECHNIQUE: Utilizing a 1.5 Riri magnet and dedicated coil, multiplanar, multiecho imaging of the ce rvical spine was performed without IV contrast. Patient was unable to tolerate additional imaging and therefore postcontrast imaging could not be performed. Therefore, this study could not be completed. FINDINGS: Alignment of the cervical spine is anatomic. Vertebral body heights are maintained. No frac ture is noted. There is marrow replacement throughout the visualized skeletal structures. This corres ponds to blastic lesions on CT of October 20, 2021. Cervical cord signal and caliber are normal. No intra canalicular mass or fluid collection is present. The central canal stenosis within the cervical spine is patent. Neural foraminal stenosis is better depicted on MRI of October 21, 2021. No epidural extensio n of tumor is identified within the cervical canal on this unenhanced study. Paravertebral soft tissu es are unremarkable. A karen cisterna magna is incidentally noted within the posterior fossa. There is no prevertebral edema. Multilevel facet arthrosis is present. IMPRESSION: 1. Redemonstration of extensive marrow replacement consistent with skeletal metastatic disease. This favors metastatic prostate carcinoma given the findings on recent CT. 2. Patent central canal within the cervical spine. Neural foraminal stenosis but are depicted on MRI of October 21, 2021. 3. Incomplete examination, as described above. Therefore, this MRI will be credited. ACT 112: Negative or not required by law. Electronically signed by: Calderon Macias M.D. 10/22/2021 10:46 AM
--- NOTE | 2021-10-22 10:52 | Progress Notes ---
DATE OF SERVICE: 10/22/2021 I am seeing Mr. Barrera in followup of an episode of numbness of his left face and weakness of his left leg and arm. He has had no recurrence. He has not yet had his boss spine MRI, likely as it need ed to be 24 hours since his last injection of dye. He has not had any recurrent or new symptoms. He received a transfusion yesterday. He is awake and alert. Speech and language are normal. Affect appropriate. Strength in the upper a nd lowers are symmetric as is light touch. Reflexes are symmetric. Toes are downgoing. IMPRESSION: Possible transient ischemic attack, see prior recommendations. Hypocalcemia. History o f metastatic prostate cancer to bone. Recommend completing MRI of cervical spine with and MRI of tho racic and lumbosacral spine with and without. The patient can see us in followup post discharge. Job ID: [id number]
--- NOTE | 2021-10-22 10:58 | Magnetic Resonance Report ---
MRI OF THE THORACIC SPINE WITHOUT CONTRAST CLINICAL HISTORY: Prostate carcinoma. Left lower extremity weakness. COMPARISON: None. TECHNIQUE: Utilizing a 1.5 Riri magnet and dedicated coil, multiplanar, multiecho imaging of the th oracic spine was performed without IV contrast. Patient was unable to complete the study and therefor e postcontrast imaging could not be performed. FINDINGS: Alignment of the thoracic spine is anatomic. Vertebral body heights are maintained. Exam is compromised by motion artifact. Extensive skeletal marrow replacement is noted. Thoracic cord signal is suboptimally assessed on this exam but likely normal. No intracanalicular mass within the thoraci c canal on unenhanced exam is noted. Minimal degenerative changes within the thoracic spine are noted . Paravertebral soft tissues are unremarkable. Possible enlarged subcarinal lymph node is suboptimall y assessed by MRI. Respiratory Equipment Assistant image demonstrates abnormalities within the posterior epidural space at the L2 level. Patient was unable to tolerate additional imaging and therefore lumbar spine MRI could not be obtained at this time IMPRESSION: 1. Extensive skeletal marrow replacement consistent with metastatic disease, likely prostate. 2. No pathologic fracture within the thoracic spine. No epidural extension of tumor within the thorac ic spine on unenhanced exam. Exam compromised by motion artifact. 3. Posterior epidural abnormality at the L2 level on child health associate images. This could reflect posterior epidu ral extension of tumor, suboptimally assessed on this exam as patient was unable to tolerate addition al imaging. When able, the patient could return for lumbar spine MRI with and without contrast. ACT 112: Negative or not required by law. Electronically signed by: Calderon Macias M.D. 10/22/2021 10:56 AM
--- NOTE | 2021-10-22 12:21 | Hospitalist Progress Note ---
Date of Service October 22, 2021 Assessment & Plan (1) Left-sided weakness: Plan: Patient is a 66 yr male with H/O Metastatic prostate cancer to bone, H/O TAVR, HTN, presented to ER with c/o left sided arm, leg weakness today started around 8:00am. Dizzy this am with fall, denies LOC. Stroke like symptoms Possible TIA --MRI Brain:No evidence of acute infarct or intracranial metastatic disease. Calvarial mottling is noted with enhancement at the skull base. Correlation with oncologic history is recommended, bone scan can be performed if there is clinical concern. --Cervical MRI:Multilevel degenerative changes without to severe right and moderate left neural foraminal stenosis. Only mild canal stenosis is seen. No evidence of spinal cord edema. Mottled appearance of the spinal cord which may represent posttreatment changes of metastatic prostate cancer, correlation with oncologic history is recommended. --Head/Neck CTA:There is no hemorrhage, mass effect, or evidence of acute territorial ischemia by CT criteria. Unremarkable CT angiogram of the brain. Unremarkable CT angiogram of the neck. 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 Correlate with the patient's oncological history. Mottled appearance of the vertebral bodies is noted, the spinal cord is normal in appearance. --ECHO: Moderate concentric LVH. No regional wall motion abnormality. EF 55 to 60%. S/P transcatheter aortic valve. No significant prosthetic regurgitation present. Mild mitral regurgitation. Grade 2 diastolic dysfunction. The very small atrial [id number]-hm-[id number] shunt was observed. There is a lesion does not allow assessment of patent foramen ovale. --Thoracic MRI:Extensive skeletal marrow replacement consistent with metastatic disease, likely prostate. No pathologic fracture within the thoracic spine. No epidural extension of tumor within the thoracic spine on unenhanced exam. Exam compromised by motion artifact. Posterior epidural abnormality at the L2 level on registered dental assistant rda images. This could reflect posterior epidural extension of tumor, suboptimally assessed on this exam as patient was unable to tolerate additional imaging. When able, the patient could return for lumbar spine MRI with and without contrast. --Lumbar MRI: Patient couldn't refused to complete the test due to pain --LDL :112 --A1C: 5.7 Continue aspirin, Lipitor Started on Plavix 75 mg daily Appreciate Neurology Input Needs Cardiac monitoring arranged as outpatient PT/OT Unsure to determine if the metastatic epidural extension of tumor compressing spinal cord leading to neurological symptoms as patient couldn't complete the testing due to pain Discussed with Neurology on 10/22/21 Plan to discharge on dual antiplatelet therapy with aspirin and Plavix for 3 weeks and then Plavix monotherapy as recommended by Neurology Patient is advised to seek immediate medical attention if symptoms re-occur or new symptoms arise. Patient understands and agrees with the plan May need Neurosurgical eval as outpatient. Also needs follow up with Neurology as outpatient (2) Hypocalcemia: Plan: Replace and monitor Continue Calcium supplements (3) Prostate cancer: Plan: Metastatic prostate cancer to bone. Lupron, Xgeva Continue home pain medications and bowel regimen (4) Anemia: Plan: Anemia of chronic disease Leukopenia Baseline Hgb: ~8 Had PRBC transfusion 10/19/21 Hgb: 6.9 today Monitor S/P 1 unit PRBC (5) HTN (hypertension): Plan: Continue atenolol DVT Px: SCDs Re: Anemia Code Status DNR/DNI Admission and Anticipated Discharge Date Admission Date: October 20, 2021 Subjective Patient is seen and examined at bedside States feeling well No recurrence of left-sided weakness, numbness Eager to get discharged Denies any chest pain, shortness of breath, abdominal pain, bleeding issues Discussed with Neurology today Review of Systems Review of Systems: All systems reviewed & are unremarkable except as noted in Subjective Physical Exam Physical Exam: Physical Exam: Vitals signs as noted above General Appearance:Moderately built and nourished, no apparent distress Head: normocephalic, Atraumatic Eyes: normal inspection, EOMI Neck: supple, Trachea midline Respiratory/Chest: Normal breath sounds, CTA, No accessory muscle use Cardiovascular: S1, S2, + Click, murmur Abdomen/GI:Soft, Non tender, Bowel sounds present Extremities/Musculoskeletal:normal inspection, no edema Neurologic/Psych:AAOX3, grossly no focal neurological deficits Skin: normal color, warm Results & Data Results & Data ([facility]) Vital Signs (Past 12 Hours) Vital Signs Temp Pulse Pulse Resp BP Pulse Ox 10/22/21 08:18 36.8 C 65 18 116/72 96 10/22/21 08:00 66 10/22/21 03:29 37.2 C 66 18 111/67 95 Laboratory Results Short CBC 10/21/21 10/22/21 Range/Units 20:28 05:29 WBC 2.68 L (4.8-10.8) K/uL Hgb 8.3 L 8.4 L (14.0-18.0) g/dL Hct 26.6 L 26.8 L (42-52) % Plt Count 184 (130-400) K/uL [facility] 10/22/21 05:29 Sodium 138 Potassium 4.7 Chloride 107 Carbon Dioxide 26 BUN 23 Creatinine 0.82 Glucose 83 Calcium 7.2 L (1) Anemia Anemia type: unspecified type Qualified Code(s): D64.9 - Anemia, unspecified
[2021-10-22] MEDS ORDERED: STROKE PATIENT DISCHARGE STA (12:42)
--- NOTE | 2021-10-22 12:44 | Discharge Summary ---
Date of Service October 22, 2021 Admission HPI Per Admitting Provider Patient is 66 y/o M with PMH metastatic prostate cancer to bone, H/O TAVR, HTN, presented to ER with c/o left sided weakness today. Reports this morning felt dizzy and fell to ground today, hitting back of head. Denies LOC. Reports left leg, left arm weakness around 8am today. Left side of face felt "different". He crawled to chair to get up. Daughter in law came home around 11:00am and he was still having left sided weakness but felt like wasn't as weak as initially. Vomited once around 12:30pm after eating yogurt. Denies abdominal pain. He feels left arm and left leg are less weak throughout the day. He states at baseline has generalized weakness but not the increased left sided weakness that he is experiencing today. History anemia and had PRBC transfusion yesterday. Is following with palliative medicine for cancer related pain. Denies fever/chills, diaphoresis, diarrhea, constipation, HUNTER, syncope, vision changes, neck pain, CP, SOB, orthopnea, palpitations, cough, sore throat, choking, otalgia, rhinorrhea, paresthesias, extremity edema, rashes, urinary symptoms. Admission Exam Per Admitting Provider On exam, General: No distress Eyes: PERRL, conjunctivae normal, not pale, anicteric sclerae, EOM intact bilaterally ENMT: External ear and nose normal, oropharynx normal Respiratory: Normal respiratory effort, no respiratory distress, lungs clear to auscultation, no crackles and no wheezes Cardiovascular: RRR, S1 S2 +click Gastrointestinal (Abdomen): Abdomen is not distended, soft, non-tender to palpation, no guarding, no palpable hepatosplenomegaly, normal bowel sounds Musculoskeletal: No pedal edema Genitourinary: No CVA tenderness Neurologic: Alert and oriented x 3, No facial deviation. No pronator drift but left UE was tremulous towards the end of exam. Power was 5/5 in both UE and RLE, 4+ in LLE. No sensory deficits. CN II, III, IV, , V, VII, VIII, X, XI,XII grossly intact Psychiatric: Euthymic affect Principal Diagnosis Stroke like symptoms Possible TIA Hypocalcemia Anemia of Chronic Disease Discharge Data Allergies Allergy/AdvReac Type Severity Reaction Status Date / Time No Known Allergies Allergy Unverified 10/20/21 16:39 Consultations 10/20/21 18:07 ED Decision to Admit Stat 10/20/21 19:58 Consult Neurology Routine Ordered Studies 10/20/21 14:52 CT angio head w con Stat CT angio neck with con Stat CT head/brain wo con Stat 10/20/21 14:54 CT cervical spine wo con Stat 10/20/21 19:58 MR brain wo/w con Urgent 10/21/21 00:31 MR cervical spine wo con Stat 10/22/21 09:00 MR cervical spine wo con Routine MR lumbar spine wo/w con Routine MR thoracic spine wo con Routine Hospital Course (1) Left-sided weakness: Patient is a 66 yr male with H/O Metastatic prostate cancer to bone, H/O TAVR, HTN, presented to ER with c/o left sided arm, leg weakness today started around 8:00am. Dizzy this am with fall, denies LOC. Stroke like symptoms Possible TIA --MRI Brain:No evidence of acute infarct or intracranial metastatic disease. Calvarial mottling is noted with enhancement at the skull base. Correlation with oncologic history is recommended, bone scan can be performed if there is clinical concern. --Cervical MRI:Multilevel degenerative changes without to severe right and moderate left neural foraminal stenosis. Only mild canal stenosis is seen. No evidence of spinal cord edema. Mottled appearance of the spinal cord which may represent posttreatment changes of metastatic prostate cancer, correlation with oncologic history is recommended. --Head/Neck CTA:There is no hemorrhage, mass effect, or evidence of acute territorial ischemia by CT criteria. Unremarkable CT angiogram of the brain. Unremarkable CT angiogram of the neck. 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 Correlate with the patient's oncological history. Mottled appearance of the vertebral bodies is noted, the spinal cord is normal in appearance. --ECHO: Moderate concentric LVH. No regional wall motion abnormality. EF 55 to 60%. S/P transcatheter aortic valve. No significant prosthetic regurgitation present. Mild mitral regurgitation. Grade 2 diastolic dysfunction. The very small atrial [id number] shunt was observed. There is a lesion does not allow assessment of patent foramen ovale. --Thoracic MRI:Extensive skeletal marrow replacement consistent with metastatic disease, likely prostate. No pathologic fracture within the thoracic spine. No epidural extension of tumor within the thoracic spine on unenhanced exam. Exam compromised by motion artifact. Posterior epidural abnormality at the L2 level on advance scout images. This could reflect posterior epidural extension of tumor, suboptimally assessed on this exam as patient was unable to tolerate additional imaging. When able, the patient could return for lumbar spine MRI with and without contrast. --Lumbar MRI: Patient couldn't refused to complete the test due to pain --LDL :112 --A1C: 5.7 Continue aspirin, Lipitor Started on Plavix 75 mg daily Appreciate Neurology Input Needs Cardiac monitoring arranged as outpatient PT/OT Unsure to determine if the metastatic epidural extension of tumor compressing spinal cord leading to neurological symptoms as patient couldn't complete the testing due to pain Discussed with Neurology on 10/22/21 Plan to discharge on dual antiplatelet therapy with aspirin and Plavix for 3 weeks and then Plavix monotherapy as recommended by Neurology Patient is advised to seek immediate medical attention if symptoms re-occur or new symptoms arise. Patient understands and agrees with the plan May need Neurosurgical eval as outpatient. Also needs follow up with Neurology as outpatient (2) Hypocalcemia: Replace and monitor Continue Calcium supplements (3) Prostate cancer: Metastatic prostate cancer to bone. Lupron, Xgeva Continue home pain medications and bowel regimen (4) Anemia: Anemia of chronic disease Leukopenia Baseline Hgb: ~8 Had PRBC transfusion 10/19/21 Hgb: 6.9 today Monitor S/P 1 unit PRBC (5) HTN (hypertension): Continue atenolol DVT Px: SCDs Re: Anemia Code Status DNR/DNI Total Time Total Time Spent Total Time Spent (In Minutes): 54 minutes Discharge Plan Discharge Items Patient Disposition: Home - Self-Care Reason For Visit: LEFT SIDED WEAKNESS Discharge Diagnosis: Stroke like symptoms Possible TIA Hypocalcemia Anemia of Chronic Disease Activity: Per Instructions section Exercise/Sports: Wait until after follow-up appointment Non-emergency contact: Primary Care Provider and Neurologist Call non-emergency contact if: you have any medication questions, your symptoms worsen, your pain is concerning for you and you have a fever Follow-up/Referrals: Lenny Meza, [Primary Care Provider] - Diet: Heart Healthy Addtl Attending Provider Instructions: Follow up with your primary care physician Dr. Lenny Meza in 1 week Follow-up with your neurologist Dr. Melva Garibay in 4 to 6 weeks as advised. Consider following with neurosurgery for further evaluation of your spine as advised. Follow-up with your side laster to discuss about atrial shunt and possible need for anticoagulation as advised. --Get Blood Test (CBC, BMP) in 1 week and follow-up with your primary care physician with results for evaluation of anemia, hypocalcemia. --Discuss with your physician for possible need to get ZIO patch arranged for e valuation of any arrhythmias. --- Start taking aspirin 81 mg and Plavix 75 mg daily for 3 weeks and then take Plavix 75 mg alone for rest of life as recommended by your neurologist. Seek immediate medical attention if your symptoms reoccur or worsen Please take all medications as instructed on discharge list below. Please call if you have any questions or problems. You can reach a [facility] hospitalist on duty at [facility] 24 hours a day by calling [phone] Risk Factors for Stroke: You can reduce your chances of stroke by working with your medical provider to adopt a healthy lifestyle. Some specific ways to lower your chance of stroke are: * If you are a smoker, now is the time to stop smoking cigarettes * If you are diabetic, improve the control of your blood sugars * Avoid excessive amounts of alcohol * Control high blood pressure * Lose weight if you are overweight * Be sure to lead an active lifestyle * Eat a healthy diet low in salt, cholesterol and fat You should know about other risk factors for stroke that you are unable to control. These include: * Age 55 years or older * Male gender * Certain racial groups: , or / * Family History of Stroke, Mini stroke or Heart Attack * Sickle Cell Disease Follow Up: It is important for you to keep your follow up appointments with your medical provider. Who to Call and When: Medical Emergencies: Call 911 immediately if you experience any of the following warning signs and symptoms of Stroke: * Sudden numbness or weakness of the face, arm or leg, especially on one side of the body * Sudden confusion, trouble speaking or understanding * Sudden trouble seeing in one or both eyes * Sudden trouble walking, dizziness, loss of balance or coordination * Sudden severe headache with no cause Do not delay calling 911 if you experience any warning signs or symptoms of a stroke. Delay in seeking medical attention may affect what treatments can be given to you. . Pending Studies at Discharge: No Stand-Alone Forms: My [facility], Smoking Cessation Medications and DC Order Prescriptions: New clopidogrel 75 mg Tablet 75 mg PO QAM Qty: 30 RF: 1 atorvastatin 40 mg Tablet 40 mg PO QAM Qty: 30 RF: 1 Continued atenolol 25 mg Tablet 25 mg PO DAILY RF: 0 oxycodone-acetaminophen [Percocet] 10-325 mg Tablet 1 tab PO Q4H PRN (Reason: Pain) RF: 0 sennosides [Senokot] 8.6 mg Tablet 8.6 mg PO DAILY RF: 0 aspirin [Aspir-Low] 81 mg Tablet,Delayed Release (Dr/Ec) 81 mg PO DAILY RF: 0 methylphenidate HCl 10 mg Tablet 10 mg PO DAILY RF: 0 morphine 30 mg Tablet Extended Release 30 mg PO BID RF: 0 mirtazapine 30 mg Tablet 15 mg PO HS RF: 0 calcium carbonate-vitamin D3 [Calcium 600 + D(3)] 600 mg-10 mcg (400 unit) Tablet 1 tab PO BID RF: 0 diclofenac sodium [Voltaren Arthritis Pain] 1 % Gel 2 g TOPICAL BID PRN (Reason: Pain) RF: 0 Movantik 25 mg Tablet 25 mg PO DAILY RF: 0 Discharge Orders: Discharge Order (Routine); Ordered 10/22/21 Ordered By: Nilton Hilliard Admission Data Admit Date/Time: 10/20/21 18:34 Attending Provider: Nilton Hilliard Admit Provider: Mariam Lauren I. Primary Care Provider: Lenny Meza Other Providers: Mariam Lauren I. ; Melva Garibay
--- NOTE | 2021-10-22 13:47 | Pharmacy Report ---
Pharmacist Stroke Counseling - Date of Service October 22, 2021 - Scope: Pharmacy has been consulted to provide medication discharge counseling for this patient admitted with ischemic stroke as per the Pharmacist Discharge Counseling for Stroke Patients Protocol. - Medications on Discharge: Home Medications Medication Instructions Recorded Confirmed atenolol 25 mg tablet 25 mg PO DAILY 10/19/21 10/20/21 oxycodone-acetaminophen 10 mg-325 1 tab PO Q4H PRN 10/19/21 10/20/21 mg tablet (Percocet) aspirin 81 mg tablet,delayed 81 mg PO DAILY 10/20/21 10/20/21 release calcium carbonate 600 mg-vitamin 1 tab PO BID 10/20/21 10/20/21 D3 10 mcg (400 unit) tablet (Calcium 600 + D(3)) diclofenac sodium 1 % topical gel 2 g TOPICAL BID PRN 10/20/21 10/20/21 (Voltaren Arthritis Pain) methylphenidate HCl 10 mg tablet 10 mg PO DAILY 10/20/21 10/20/21 mirtazapine 30 mg tablet 15 mg PO HS 10/20/21 10/20/21 morphine 30 mg tablet,extended 30 mg PO BID 10/20/21 10/20/21 release naloxegol 25 mg tablet (Movantik) 25 mg PO DAILY 10/20/21 10/20/21 sennosides 8.6 mg tablet (Senokot) 8.6 mg PO DAILY 10/20/21 10/20/21 New Rx's Medication Instructions Recorded atorvastatin 40 mg tablet 40 mg PO QAM #30 tab 10/22/21 clopidogrel 75 mg tablet 75 mg PO QAM #30 tab 10/22/21 - Action: The above medications, specifically ones for stroke treatment/prophylaxis, have been reviewed in detail with the patient prior to discharge. This includes indication, common adverse reactions, drug interactions, and medication administration. Medication counseling has been employed using the teach-back method to ensure understanding. - Outcome: The patient have demonstrated understanding of the medications. Additional comments: -counseled patient via telephone. no questions. Thank you for allowing pharmacy to be involved in the care of this patient. Please call [phone] with any additional questions
[2021-10-22] MEDS ORDERED: CALCIUM CARBONATE 500 MG CHEWABLE TAB PO SCH (21:00)
== END 2021-10-22 16:45 | disposition home or self-care (01) | DRG 69 ==
LOC: ED 14:37 → 2N 18:34 → SUATTDRO 18:34 → 2N 19:43